=== PATIENT | male | born 1965 | race Two or more races ===

== ENCOUNTER 2017-11-17 12:06 | Inpatient (IN) | payer MEDICAID ==
[~2017-11-17] VITALS: Ht 177.8 cm; Wt 88.0 kg
[~2017-11-17 12:06] MED LIST: FOLI1TAB16 PO; SIME80TA16 PO; THI100T PO
[2017-11-17] MEDS ORDERED: normal saline 1000ML IV soln IVB ONE (13:00)
[2017-11-17] MEDS ORDERED: piperacillin/tazo 3.375gm/50ml 50 ML IV ONE (13:00)
[2017-11-17] MEDS ORDERED: vancomycin/NS 1 GM ADD-VANTAGE 250 ML IV ONE (13:00)
[2017-11-17] MEDS ORDERED: ketorolac trometh. 30mg/ml inj. IV ONE (13:00)
[2017-11-17 13:21] LABS: BASOPHILS % (AUTO) 0.2 % (0-1); EOSINOPHILS % (AUTO) 0 % (0-6); HEMATOCRIT 44.7 % (42.0-52.0); HEMOGLOBIN 14.9 g/dl (14.0-17.9); LYMPHOCYTES # (AUTO) 1.8 X10'3 (1.1-4.8); LYMPHOCYTES % (AUTO) 9.7 % (21-51); MEAN CORPUSCULAR HEMOGLOBIN 29.3 PG (27.0-31.0); MEAN CORPUSCULAR HGB CONC 33.3 % (33.0-36.5); MEAN CORPUSCULAR VOLUME 87.8 FL (78-98); MEAN PLATELET VOLUME 7.6 FL (7.4-10.4); MONOCYTES # (AUTO) 0.9 X10'3 (0-0.9); MONOCYTES % (AUTO) 5.2 % (2-12); NEUTROPHILS # (AUTO) 15.5 X10'3 (1.8-7.7); NEUTROPHILS % (AUTO) 84.9 % (42-75); PLATELET COUNT 341 X10'3 (140-440); RED BLOOD COUNT 5.09 X10'6 (4.70-6.10); RED CELL DISTRIBUTION WIDTH 15.1 % (11.5-14.5); WHITE BLOOD COUNT 18.2 X10'3 (4.5-11.0)
[2017-11-17 13:36] LABS: ALANINE AMINOTRANSFERASE 14 U/L (12-78); ALBUMIN 2.9 G/DL (3.4-5.0); ALBUMIN/GLOBULIN RATIO 0.6 (1.1-1.5); ALKALINE PHOSPHATASE 108 IU/L (46-116); ANION GAP 11 (8-16); ASPARTATE AMINO TRANSFERASE 12 U/L (10-37); BILIRUBIN,TOTAL 0.6 MG/DL (0.1-1.0); BLOOD UREA NITROGEN 12 MG/DL (7-18); BUN/CREATININE RATIO 11.8 (5.4-32.0); CALCIUM 8.6 MG/DL (8.5-10.1); CHLORIDE 101 MMOL/L (99-107); CREATININE 1.02 MG/DL (0.60-1.10); GLUCOSE 115 MG/DL (70-104); MAGNESIUM 1.9 MG/DL (1.5-2.4); SODIUM 139 MMOL/L (135-145); TOTAL CARBON DIOXIDE 27.1 MMOL/L (24-32); eGFR 77 ML/MIN
[2017-11-17] MEDS ORDERED: buprenorphine/naloxone 2-0.5mg sublingual tablet SL STA (13:37)
[2017-11-17 13:38] LABS: POTASSIUM 2.9 MMOL/L (3.5-5.1)
[2017-11-17] MEDS ORDERED: potassium Cl 20 mEq SR tablet PO ONE (13:40)
[2017-11-17] MEDS ORDERED: bisacodyl 10mg suppository rectal RC PRN (14:20)
[2017-11-17] MEDS ORDERED: haloperidol lactate 5mg/ml inj IM PRN (14:20)
[2017-11-17] MEDS ORDERED: acetaminophen 325mg tablet PO PRN (14:20)
[2017-11-17] MEDS ORDERED: thiamine 100mg/ml 2ml inj. IV ONE (14:20)
[2017-11-17] MEDS ORDERED: loperamide 2mg capsule PO PRN (14:20)
[2017-11-17] MEDS ORDERED: dextrose 50%-water 50ml dispensing syringe IV PRN (14:20)
[2017-11-17] MEDS ORDERED: haloperidol 5mg tablet PO PRN (14:20)
[2017-11-17] MEDS ORDERED: HYDROmorphone inj. 0.5 MG/0.5 ML DISP.SYRIN IV PRN ×2 (14:20)
[2017-11-17] MEDS ORDERED: mag hydrox/Alum hydrox/simeth 30ml oral suspension PO PRN ×2 (14:20)
[2017-11-17] MEDS ORDERED: potassium Cl 20 mEq SR tablet PO PRN (14:20)
[2017-11-17] MEDS ORDERED: metoclopramide 5 mg/ml inj IV PRN (14:20)
[2017-11-17] MEDS ORDERED: HYDROcodone/acetaminophen 5mg/325mg tablet PO PRN (14:20)
[2017-11-17] MEDS ORDERED: cyclobenzaprine 10mg tablet PO PRN (14:20)
[2017-11-17] MEDS ORDERED: acetaminophen 650mg rectal suppository RC PRN (14:20)
[2017-11-17] MEDS ORDERED: magnesium hydroxide 30ml (MOM) UD suspension PO PRN (14:20)
[2017-11-17] MEDS ORDERED: LORazepam 1 MG tablet PO PRN (14:20)
[2017-11-17] MEDS ORDERED: HYDROcodone/acetaminophen 10/325mg tab PO PRN (14:20)
[2017-11-17] MEDS ORDERED: LORazepam 2 mg/ml vial IV PRN (14:20)
[2017-11-17] MEDS ORDERED: dicyclomine 10 MG capsule PO PRN (14:20)
[2017-11-17] MEDS ORDERED: ondansetron/PF 4mg/2ml inj IV PRN (14:20)
[2017-11-17] MEDS ORDERED: diphenhydrAMINE 25mg capsule PO PRN (14:20)
[2017-11-17] MEDS ORDERED: morphine 4 MG/ML inj SYRINge IV PRN ×2 (14:20)
[2017-11-17] MEDS ORDERED: diphenhydrAMINE 50 mg/ml inj IV PRN (14:20)
[2017-11-17] MEDS ORDERED: cloNIDine 0.1 mg tablet PO PRN (14:20)
[2017-11-17 14:42] LABS: PARTIAL THROMBOPLASTIN TIME 31 SECONDS (22-32); PROTHROMBIN TIME 10.8 SECONDS (9.0-12.0)
[2017-11-17] MEDS: potassium Cl 20mEq in NS 1,000 ML IV SCH (14:57)
[2017-11-17 15:33] LABS: LIPASE 134 U/L (73-393); PHOSPHORUS 2.8 MG/DL (2.3-4.5)
[2017-11-17 15:49] LABS: CLARITY,URINE Clear (Clear); GLUCOSE, URINE Negative (Neg); KETONES,URINE Negative (Neg); LEUKOCYTE ESTERASE ,URINE Negative (Neg); NITRITES, URINE Negative (Neg); OCCULT BLOOD,URINE Negative (Neg); PROTEIN,URINE 100 mg/dl (Neg)
[2017-11-17 15:51] LABS: COLOR,URINE DARK YELLOW (Yellow); UA COLLECTION TYPE CLN CATCH MIDSTREAM
[2017-11-17 15:55] LABS: RBC,URINE 0-2 /HPF (0-2); WBC,URINE 0-4 /HPF (0-4)
[2017-11-17 15:56] LABS: BACTERIA,URINE NONE SEEN /HPF (Neg); HYALINE CASTS 0-3 /LPF (NEGATIVE); MUCUS STRANDS FEW /LPF (Neg); SQUAMOUS EPITHELIAL CELL,UR FEW /LPF (FEW)
[2017-11-17 16:15] VITALS: BP 126/87
[2017-11-17 19:00] VITALS: BP 148/84
[2017-11-17] MEDS: piperacillin/tazo 4.5gm/100ml 100 ML IV SCH (19:53)
[2017-11-17] MEDS: docusate sod 100mg capsule PO SCH (19:54)
[2017-11-17] MEDS: heparin, porcine 5000 units/ml vial SQ SCH (19:55)
[2017-11-17] MEDS ORDERED: vancomycin/NS 1 GM ADD-VANTAGE 250 ML IV SCH (20:00)
[2017-11-17] MEDS ORDERED: temazepam 15mg capsule PO PRN (21:00)
[2017-11-17] MEDS: gabapentin 100mg capsule PO SCH (21:37)
[2017-11-17] MEDS: potassium Cl 20 mEq SR tablet PO PRN (21:48)
[2017-11-17] MEDS: vancomycin inj 1,250 MG in normal saline 250ml IV soln 250 ML IV SCH (23:08)
[2017-11-18] VITALS: BP 151/89
[2017-11-18] MEDS: potassium Cl 20 mEq SR tablet PO PRN (02:07)
[2017-11-18] MEDS: potassium Cl 20mEq in NS 1,000 ML IV SCH ×3 (03:22→20:17)
[2017-11-18 05:44] LABS: BASOPHILS % (AUTO) 0.4 % (0-1); EOSINOPHILS # (AUTO) 0.2 X10'3 (0-0.9); EOSINOPHILS % (AUTO) 1.8 % (0-6); HEMATOCRIT 34.7 % (42.0-52.0); HEMOGLOBIN 11.8 g/dl (14.0-17.9); LYMPHOCYTES % (AUTO) 22.9 % (21-51); MEAN CORPUSCULAR HEMOGLOBIN 29.8 PG (27.0-31.0); MEAN CORPUSCULAR HGB CONC 33.9 % (33.0-36.5); MEAN PLATELET VOLUME 8.7 FL (7.4-10.4); MONOCYTES # (AUTO) 0.9 X10'3 (0-0.9); MONOCYTES % (AUTO) 6.6 % (2-12); NEUTROPHILS # (AUTO) 8.9 X10'3 (1.8-7.7); NEUTROPHILS % (AUTO) 68.3 % (42-75); PLATELET COUNT 274 X10'3 (140-440); RED BLOOD COUNT 3.94 X10'6 (4.70-6.10); WHITE BLOOD COUNT 13.1 X10'3 (4.5-11.0)
[2017-11-18 06:43] LABS: URINE AMPHETAMINE SCREEN NEGATIVE (Neg); URINE BARBITUATE SCREEN NEGATIVE (Neg); URINE BENZODIAZEPINES SCREEN NEGATIVE (Neg); URINE CANNABINOID SCREEN POSITIVE (Neg); URINE COCAINE SCREEN NEGATIVE (Neg); URINE METHADONE SCREEN NEGATIVE (Neg); URINE OPIATE SCREEN NEGATIVE (Neg); URINE PHENCYCLIDINE SCREEN NEGATIVE (Neg)
[2017-11-18 06:48] LABS: ALANINE AMINOTRANSFERASE 17 U/L (12-78); ALBUMIN 2.3 G/DL (3.4-5.0); ALBUMIN/GLOBULIN RATIO 0.6 (1.1-1.5); ALKALINE PHOSPHATASE 78 IU/L (46-116); AMYLASE 225 U/L (25-115); ANION GAP 8 (8-16); ASPARTATE AMINO TRANSFERASE 13 U/L (10-37); BILIRUBIN,TOTAL 0.5 MG/DL (0.1-1.0); BLOOD UREA NITROGEN 16 MG/DL (7-18); BUN/CREATININE RATIO 15.7 (5.4-32.0); CALCIUM 7.7 MG/DL (8.5-10.1); CHLORIDE 107 MMOL/L (99-107); CREATININE 1.02 MG/DL (0.60-1.10); GLUCOSE 98 MG/DL (70-104); POTASSIUM 4.1 MMOL/L (3.5-5.1); SODIUM 141 MMOL/L (135-145); TOTAL CARBON DIOXIDE 26.1 MMOL/L (24-32); TOTAL PROTEIN 6.4 G/DL (6.4-8.2); eGFR 77 ML/MIN
[2017-11-18] MEDS: docusate sod 100mg capsule PO SCH ×2 (06:53→20:00)
[2017-11-18] MEDS: gabapentin 100mg capsule PO SCH ×3 (06:53→21:47)
[2017-11-18] MEDS: pantoprazole 40mg Tablet.DR PO SCH (06:54)
[2017-11-18] MEDS: heparin, porcine 5000 units/ml vial SQ SCH ×2 (06:58→19:20)
[2017-11-18] MEDS: vancomycin inj 1,250 MG in normal saline 250ml IV soln 250 ML IV SCH ×3 (07:07→23:20)
[2017-11-18 07:11] VITALS: BP 143/81
[2017-11-18] MEDS: K and/or MAG REPLACEMENT MC SCH (08:00)
[2017-11-18] MEDS: piperacillin/tazo 4.5gm/100ml 100 ML IV SCH ×2 (09:31→19:20)
[2017-11-18] MEDS: buprenorphine/naloxone 8mg/2mg SL tablet SL SCH (10:08)
[2017-11-18] MEDS ORDERED: OMEP20CA10 PO (11:14)
[2017-11-18 11:18] VITALS: BP 128/57
[2017-11-18] MEDS ORDERED: NO HOME MEDS (12:28)
[2017-11-18 19:00] VITALS: BP 140/75
[2017-11-18] MEDS: lactobacillus rhamnosus 10,000 MMU CELLS/CAPSULE PO SCH (19:20)
[2017-11-18] MEDS ORDERED: VANCOMYCIN LEVEL IV ONE (22:30)
[2017-11-19] VITALS: BP 140/81
[2017-11-19 05:29] LABS: BASOPHILS % (AUTO) 0.4 % (0-1); EOSINOPHILS # (AUTO) 0.3 X10'3 (0-0.9); EOSINOPHILS % (AUTO) 2.3 % (0-6); HEMATOCRIT 33.9 % (42.0-52.0); HEMOGLOBIN 11.2 g/dl (14.0-17.9); LYMPHOCYTES # (AUTO) 2.9 X10'3 (1.1-4.8); LYMPHOCYTES % (AUTO) 26.2 % (21-51); MEAN CORPUSCULAR HEMOGLOBIN 29.2 PG (27.0-31.0); MEAN CORPUSCULAR HGB CONC 33.1 % (33.0-36.5); MEAN CORPUSCULAR VOLUME 88.3 FL (78-98); MONOCYTES # (AUTO) 0.8 X10'3 (0-0.9); MONOCYTES % (AUTO) 6.8 % (2-12); NEUTROPHILS # (AUTO) 7.2 X10'3 (1.8-7.7); NEUTROPHILS % (AUTO) 64.3 % (42-75); PLATELET COUNT 316 X10'3 (140-440); RED BLOOD COUNT 3.84 X10'6 (4.70-6.10); RED CELL DISTRIBUTION WIDTH 15.2 % (11.5-14.5); WHITE BLOOD COUNT 11.1 X10'3 (4.5-11.0)
[2017-11-19 05:47] LABS: ALANINE AMINOTRANSFERASE 15 U/L (12-78); ALBUMIN 2.3 G/DL (3.4-5.0); ALBUMIN/GLOBULIN RATIO 0.5 (1.1-1.5); ALKALINE PHOSPHATASE 90 IU/L (46-116); AMYLASE 88 U/L (25-115); ANION GAP 4 (8-16); ASPARTATE AMINO TRANSFERASE 9 U/L (10-37); BILIRUBIN,TOTAL 0.4 MG/DL (0.1-1.0); BLOOD UREA NITROGEN 15 MG/DL (7-18); BUN/CREATININE RATIO 15.5 (5.4-32.0); CALCIUM 8.3 MG/DL (8.5-10.1); CHLORIDE 108 MMOL/L (99-107); CREATININE 0.97 MG/DL (0.60-1.10); GLUCOSE 88 MG/DL (70-104); POTASSIUM 3.9 MMOL/L (3.5-5.1); SODIUM 141 MMOL/L (135-145); TOTAL CARBON DIOXIDE 28.7 MMOL/L (24-32); TOTAL PROTEIN 6.5 G/DL (6.4-8.2); eGFR 81 ML/MIN
[2017-11-19] MEDS: potassium Cl 20mEq in NS 1,000 ML IV SCH ×2 (06:17→10:40)
[2017-11-19 06:53] VITALS: BP 148/84
[2017-11-19] MEDS: pantoprazole 40mg Tablet.DR PO SCH (07:11)
[2017-11-19] MEDS: heparin, porcine 5000 units/ml vial SQ SCH ×2 (07:11→19:58)
[2017-11-19] MEDS: lactobacillus rhamnosus 10,000 MMU CELLS/CAPSULE PO SCH ×2 (07:11→19:58)
[2017-11-19] MEDS: gabapentin 100mg capsule PO SCH ×3 (07:11→21:01)
[2017-11-19] MEDS: vancomycin inj 1,250 MG in normal saline 250ml IV soln 250 ML IV SCH ×3 (07:11→22:47)
[2017-11-19] MEDS: docusate sod 100mg capsule PO SCH ×2 (07:11→19:58)
[2017-11-19] MEDS: K and/or MAG REPLACEMENT MC SCH (08:00)
[2017-11-19] MEDS: buprenorphine/naloxone 8mg/2mg SL tablet SL SCH (09:00)
[2017-11-19] MEDS: piperacillin/tazo 4.5gm/100ml 100 ML IV SCH ×2 (09:00→21:01)
[2017-11-19 11:27] VITALS: BP 150/86
[2017-11-19 19:30] VITALS: BP 156/78
[2017-11-20 00:20] VITALS: BP 152/85
[2017-11-20] MEDS: potassium Cl 20mEq in NS 1,000 ML IV SCH ×3 (02:05→14:15)
[2017-11-20 05:24] LABS: BASOPHILS # (AUTO) 0.1 X10'3 (0-0.2); BASOPHILS % (AUTO) 0.7 % (0-1); EOSINOPHILS # (AUTO) 0.3 X10'3 (0-0.9); EOSINOPHILS % (AUTO) 2.7 % (0-6); HEMATOCRIT 35.4 % (42.0-52.0); HEMOGLOBIN 11.8 g/dl (14.0-17.9); LYMPHOCYTES # (AUTO) 2.8 X10'3 (1.1-4.8); LYMPHOCYTES % (AUTO) 27.8 % (21-51); MEAN CORPUSCULAR HEMOGLOBIN 29.7 PG (27.0-31.0); MEAN CORPUSCULAR HGB CONC 33.4 % (33.0-36.5); MEAN CORPUSCULAR VOLUME 88.9 FL (78-98); MONOCYTES # (AUTO) 0.8 X10'3 (0-0.9); MONOCYTES % (AUTO) 7.9 % (2-12); NEUTROPHILS % (AUTO) 60.9 % (42-75); PLATELET COUNT 315 X10'3 (140-440); RED BLOOD COUNT 3.98 X10'6 (4.70-6.10); RED CELL DISTRIBUTION WIDTH 15.2 % (11.5-14.5); WHITE BLOOD COUNT 9.9 X10'3 (4.5-11.0)
[2017-11-20 05:45] LABS: ALANINE AMINOTRANSFERASE 13 U/L (12-78); ALBUMIN 2.3 G/DL (3.4-5.0); ALBUMIN/GLOBULIN RATIO 0.5 (1.1-1.5); ALKALINE PHOSPHATASE 84 IU/L (46-116); AMYLASE 60 U/L (25-115); ANION GAP 8 (8-16); ASPARTATE AMINO TRANSFERASE 12 U/L (10-37); BILIRUBIN,TOTAL 0.4 MG/DL (0.1-1.0); BLOOD UREA NITROGEN 13 MG/DL (7-18); BUN/CREATININE RATIO 12.6 (5.4-32.0); CALCIUM 8.1 MG/DL (8.5-10.1); CHLORIDE 105 MMOL/L (99-107); CREATININE 1.03 MG/DL (0.60-1.10); GLUCOSE 88 MG/DL (70-104); POTASSIUM 3.9 MMOL/L (3.5-5.1); SODIUM 140 MMOL/L (135-145); TOTAL CARBON DIOXIDE 26.7 MMOL/L (24-32); TOTAL PROTEIN 6.7 G/DL (6.4-8.2); eGFR 76 ML/MIN
[2017-11-20] MEDS: pantoprazole 40mg Tablet.DR PO SCH (07:02)
[2017-11-20] MEDS: vancomycin inj 1,250 MG in normal saline 250ml IV soln 250 ML IV SCH ×3 (07:02→22:50)
[2017-11-20] MEDS: gabapentin 100mg capsule PO SCH ×3 (07:02→21:45)
[2017-11-20] MEDS: lactobacillus rhamnosus 10,000 MMU CELLS/CAPSULE PO SCH ×2 (07:02→19:50)
[2017-11-20] MEDS: docusate sod 100mg capsule PO SCH ×2 (07:02→19:51)
[2017-11-20 07:13] VITALS: BP 159/83
[2017-11-20] MEDS: K and/or MAG REPLACEMENT MC SCH (08:00)
[2017-11-20] MEDS: piperacillin/tazo 4.5gm/100ml 100 ML IV SCH ×2 (08:54→19:51)
[2017-11-20] MEDS: heparin, porcine 5000 units/ml vial SQ SCH ×2 (08:54→19:51)
[2017-11-20] MEDS: buprenorphine/naloxone 8mg/2mg SL tablet SL SCH (08:54)
[2017-11-20 11:14] VITALS: BP 153/86
[2017-11-20] MEDS: nicotine 14mg patch - 24hr TD SCH (17:04)
[2017-11-20] MEDS ORDERED: HYDROmorphone 1 mg/ml syringe ONE (19:45)
[2017-11-20 20:00] VITALS: BP 156/89
[2017-11-21] VITALS: BP 152/75
[2017-11-21] MEDS: potassium Cl 20mEq in NS 1,000 ML IV SCH (05:24)
[2017-11-21 05:25] LABS: BASOPHILS % (AUTO) 0.4 % (0-1); EOSINOPHILS # (AUTO) 0.3 X10'3 (0-0.9); EOSINOPHILS % (AUTO) 2.9 % (0-6); HEMATOCRIT 36.1 % (42.0-52.0); HEMOGLOBIN 12.1 g/dl (14.0-17.9); LYMPHOCYTES # (AUTO) 2.7 X10'3 (1.1-4.8); LYMPHOCYTES % (AUTO) 25.5 % (21-51); MEAN CORPUSCULAR HEMOGLOBIN 29.5 PG (27.0-31.0); MEAN CORPUSCULAR HGB CONC 33.6 % (33.0-36.5); MEAN CORPUSCULAR VOLUME 87.9 FL (78-98); MONOCYTES # (AUTO) 0.8 X10'3 (0-0.9); MONOCYTES % (AUTO) 7.7 % (2-12); NEUTROPHILS # (AUTO) 6.7 X10'3 (1.8-7.7); NEUTROPHILS % (AUTO) 63.5 % (42-75); PLATELET COUNT 374 X10'3 (140-440); RED BLOOD COUNT 4.11 X10'6 (4.70-6.10); WHITE BLOOD COUNT 10.6 X10'3 (4.5-11.0)
[2017-11-21] MEDS: HYDROmorphone 1 mg/ml syringe ONE ×2 (05:25→05:33)
[2017-11-21 05:44] LABS: ALANINE AMINOTRANSFERASE 17 U/L (12-78); ALBUMIN 2.4 G/DL (3.4-5.0); ALBUMIN/GLOBULIN RATIO 0.5 (1.1-1.5); ALKALINE PHOSPHATASE 90 IU/L (46-116); ANION GAP 6 (8-16); ASPARTATE AMINO TRANSFERASE 11 U/L (10-37); BILIRUBIN,TOTAL 0.5 MG/DL (0.1-1.0); BLOOD UREA NITROGEN 12 MG/DL (7-18); BUN/CREATININE RATIO 10.8 (5.4-32.0); CALCIUM 8.7 MG/DL (8.5-10.1); CHLORIDE 108 MMOL/L (99-107); CREATININE 1.11 MG/DL (0.60-1.10); GLUCOSE 92 MG/DL (70-104); POTASSIUM 4.1 MMOL/L (3.5-5.1); SODIUM 143 MMOL/L (135-145); TOTAL CARBON DIOXIDE 29.5 MMOL/L (24-32); TOTAL PROTEIN 7.2 G/DL (6.4-8.2); eGFR 70 ML/MIN
[2017-11-21] MEDS: K and/or MAG REPLACEMENT MC SCH (06:45)
[2017-11-21 07:00] VITALS: BP 125/89
[2017-11-21] MEDS: docusate sod 100mg capsule PO SCH (07:31)
[2017-11-21] MEDS: gabapentin 100mg capsule PO SCH ×2 (07:31→12:44)
[2017-11-21] MEDS: pantoprazole 40mg Tablet.DR PO SCH (07:31)
[2017-11-21] MEDS: vancomycin inj 1,250 MG in normal saline 250ml IV soln 250 ML IV SCH (07:31)
[2017-11-21] MEDS: lactobacillus rhamnosus 10,000 MMU CELLS/CAPSULE PO SCH (07:31)
[2017-11-21] MEDS: heparin, porcine 5000 units/ml vial SQ SCH (07:32)
[2017-11-21] MEDS: nicotine 14mg patch - 24hr TD SCH (07:32)
[2017-11-21] MEDS ORDERED: nicotine 14mg patch - 24hr TD SCH (08:00)
[2017-11-21] MEDS ORDERED: buprenorphine/naloxone 2-0.5mg sublingual tablet SL SCH (08:51)
[2017-11-21] MEDS: piperacillin/tazo 4.5gm/100ml 100 ML IV SCH (09:11)
[2017-11-21 12:00] VITALS: BP 153/87
[2017-11-21] MEDS ORDERED: METR500T PO (12:18)
[2017-11-21] MEDS ORDERED: CIPR-259 PO (12:18)
[2017-11-21] MEDS ORDERED: GABA100C PO (12:18)
[2017-11-21] MEDS ORDERED: HYDR-3972 PO (12:18)
[2017-11-21] MEDS ORDERED: NICO-631 TD (12:18)
== END 2017-11-21 17:44 | disposition home health service (06) | DRG 344 ==
LOC: ER 12:07 → ED HOLD 14:17 → SUR 3N 16:13
PROVIDERS: ADMIT Family Medicine; ATTEND Internal Medicine
DX: M00.9 Pyogenic arthritis, unspecified (principal); L03.115 Cellulitis of right lower limb; B19.20 Unspecified viral hepatitis C without hepatic coma; F11.10 Opioid abuse, uncomplicated; E87.6 Hypokalemia; F10.10 Alcohol abuse, uncomplicated; M70.41 Prepatellar bursitis, right knee; F12.90 Cannabis use, unspecified, uncomplicated; F17.210 Nicotine dependence, cigarettes, uncomplicated; G89.29 Other chronic pain; Z91.19 Patient's noncompliance with other medical treatment and regimen; Z59.0 Homelessness; Z79.899 Other long term (current) drug therapy; Y93.89 Activity, other specified
CPT/HCPCS: 36415; 73560; 73590; 80053; 80202; 80305; 81001; 82150; 82948; 83605; 83690; 83735; 83880; 84100; 84145; 85025; 85610; 85730; 87040; 87070; 96365; 96368; 96375; 97110; 97116; 97162; 97530; 99285; A4649; A6196; A6212; A6213; A6257; A6449; J1170; J1644; J1885; J2543; J3370; J3411; J7030

== ENCOUNTER 2018-06-25 17:20 | Inpatient (IN) | payer MEDICAID ==
[~2018-06-25] VITALS: Ht 177.8 cm; Wt 84.8 kg
[~2018-06-25 17:20] MED LIST changes: -FOLI1TAB16 PO; +GABA100C PO; +HYDR-3972 PO; +NICO-631 TD; +NO HOME MEDS; -SIME80TA16 PO; -THI100T PO; +etomidate 2mg/ml inj. ONE; +rocuronium 10mg/ml inj IV ONE
[2018-06-25 19:10] LABS: BASOPHILS % (AUTO) 0 % (0-1); EOSINOPHILS % (AUTO) 0 % (0-6); HEMATOCRIT 48.8 % (42.0-52.0); HEMOGLOBIN 15.5 g/dl (14.0-17.9); INR 1.1 INR; LYMPHOCYTES # (AUTO) 0.8 X10'3 (1.1-4.8); LYMPHOCYTES % (AUTO) 7.5 % (21-51); MEAN CORPUSCULAR HEMOGLOBIN 26.9 PG (27.0-31.0); MEAN CORPUSCULAR HGB CONC 31.8 % (33.0-36.5); MEAN CORPUSCULAR VOLUME 84.7 FL (78-98); MEAN PLATELET VOLUME 7.9 FL (7.4-10.4); MONOCYTES # (AUTO) 0.3 X10'3 (0-0.9); MONOCYTES % (AUTO) 2.3 % (2-12); NEUTROPHILS % (AUTO) 90.2 % (42-75); PLATELET COUNT 332 X10'3 (140-440); PROTHROMBIN TIME 10.9 SECONDS (9.0-12.0); RED BLOOD COUNT 5.75 X10'6 (4.70-6.10); RED CELL DISTRIBUTION WIDTH 15.7 % (11.5-14.5); WHITE BLOOD COUNT 11.1 X10'3 (4.5-11.0)
[2018-06-25 19:14] LABS: ALANINE AMINOTRANSFERASE 32 U/L (12-78); ALBUMIN 3.7 G/DL (3.4-5.0); ALBUMIN/GLOBULIN RATIO 0.7 (1.1-1.5); ALKALINE PHOSPHATASE 227 IU/L (46-116); ANION GAP 13 (8-16); ASPARTATE AMINO TRANSFERASE 20 U/L (10-37); BLOOD UREA NITROGEN 21 MG/DL (7-18); BUN/CREATININE RATIO 19.6 (5.4-32.0); CALCIUM 9.7 MG/DL (8.5-10.1); CHLORIDE 96 MMOL/L (99-107); CREATININE 1.07 MG/DL (0.60-1.10); GLUCOSE 143 MG/DL (70-104); POTASSIUM 3.9 MMOL/L (3.5-5.1); SODIUM 137 MMOL/L (135-145); TOTAL CARBON DIOXIDE 28.1 MMOL/L (24-32); TOTAL PROTEIN 9.1 G/DL (6.4-8.2); eGFR 72 ML/MIN
[2018-06-25 19:49] LABS: LIPASE 83 U/L (73-393)
--- NOTE | 2018-06-25 20:28 | NUR ---
DR WALKER AND BABAR MCDANIELS AT BEDSIDE WITH PT
[2018-06-25] MEDS ORDERED: HYDROmorphone 2mg/ml vial IV PRN (20:30)
[2018-06-25] MEDS ORDERED: iohexol 350MG/ML 100ml bottle IV ONE (20:34)
[2018-06-25] MEDS: HYDROmorphone 1 mg/ml syringe IV PRN ×3 (20:45→22:51)
[2018-06-25] MEDS ORDERED: labetalol 20mg/4ml (5mg/ml) syringe IV ONE (21:10)
--- NOTE | 2018-06-25 21:28 | NUR ---
BABAR MCDANIELS AND DR. WALKER AT BEDSIDE TO ATTEMPT REDUCTION OF ABD HERNIA, UNSUCCESSFUL AND PT WITH MOR PAIN TO ABD NOWL. PRN DILAUDID 0.5 IV GIVEN AND LABETOLOL 20 MG IV GIVEN FOR CONTINUED HTN, BP 162/104. PT IS SOMOULANT BUT AWAKENS TO LOUD VOICE AND ANSWERS APPROPRIATELY.
[2018-06-25] MEDS ORDERED: esmolol/sodium cl bag 250 ML IV SCH (22:10)
--- NOTE | 2018-06-25 22:28 | NUR ---
PER DR WALKER TITRATE PER PROTOCOL ESMOLOL TO GET SYSTOLIC BELOW 120.
[2018-06-25] MEDS ORDERED: labetalol inj. 200 MG in normal saline 250ml IV soln 210 ML IV SCH (22:50)
[2018-06-25] MEDS ORDERED: LORazepam 2 mg/ml vial ONE (22:55)
[2018-06-25] MEDS ORDERED: LORazepam 2 mg/ml vial IV ONE (22:55)
--- NOTE | 2018-06-25 22:57 | NUR ---
Pt moved to room 5, multiple RNs and MD in room. RT paged for intubation, preparing medications. Pt very uncomfortable.
--- NOTE | 2018-06-25 23:00 | NUR ---
rocuronium 70 mg IV RAC
--- NOTE | 2018-06-25 23:01 | NUR ---
etomidate 20 mg IV RAC
[2018-06-25] MEDS ORDERED: rocuronium 10mg/ml inj IV ONE ×2 (23:05→23:30)
[2018-06-25] MEDS ORDERED: etomidate 2mg/ml inj. IV ONE (23:05)
[2018-06-25] MEDS ORDERED: hydrALAZINE 20mg/ml inj. IV STA (23:06)
[2018-06-25] MEDS ORDERED: ringers solution, lacted 1,000 ML IV SCH (23:07)
[2018-06-25] MEDS ORDERED: hydrALAZINE 20mg/ml inj. IV PRN (23:10)
[2018-06-25] MEDS ORDERED: morphine 4 MG/ML inj SYRINge IV PRN ×2 (23:10)
[2018-06-25] MEDS ORDERED: fentaNYL/PF 50MCG/1 ML 2ML syringe IV PRN ×2 (23:10)
[2018-06-25] MEDS ORDERED: labetalol 20mg/4ml (5mg/ml) syringe IV PRN (23:10)
[2018-06-25] MEDS ORDERED: ondansetron/PF 4mg/2ml inj IV PRN (23:10)
[2018-06-25] MEDS ORDERED: piperacillin/tazo 4.5gm/100ml 100 ML IV ONE (23:10)
--- NOTE | 2018-06-25 23:10 | NUR ---
is prepared, and is going to do an central line
[2018-06-25] MEDS ORDERED: nitroGLYCERIN-Tridil 50MG/D5W 250 ML IV ONE (23:20)
[2018-06-25] MEDS: midazolam 100mg in NS 100ml 100 ML IV PRN (23:21)
[2018-06-25] MEDS: FENTANYL-0.9 % NACL/PF 100 ML IV PRN (23:22)
--- NOTE | 2018-06-25 23:26 | NUR ---
ET reposotioned to 26cm at teeth. Found at 27cm at teeth upons CXR.
[2018-06-25] MEDS ORDERED: MIDAZolam 5mg/5ml vial ONE (23:29)
[2018-06-25] MEDS ORDERED: fentaNYL/PF 50MCG/1 ML 2ML syringe ONE (23:29)
[2018-06-25 23:35] LABS: ABG BASE EXCESS 3.7 mmol/L (-2.0-3.0); ABG HCO3 27.8 mmol/L (22.0-26.0); ABG OXYGEN SATURATION 98.4 % (95-98); ABG PCO2 (T) 40.7 mmHg (35.0-48.0); ABG PH (T) 7.454 (7.350-7.450); ABG PO2 (T) 131.2 mmHg (83-108); ALLEN'S TEST Positive; FCOHb 1.4 % (0.5-1.5); FMetHb 0.2 % (0.3-1.12); FO2Hb 96.8 % (94-100); MINUTE VOLUME 9 L/min; PATIENT TEMPERATURE 37.2; PEEP 5 cm H2O; RESPIRATORY RATE 16 b/min; RESPIRATORY RATE (OBSERVED) 23 b/min; TIDAL VOLUME 550 mL
[2018-06-25] MEDS ORDERED: clindamycin phosphate 150mg/ml inj. ONE (23:42)
[2018-06-25] MEDS ORDERED: SODIUM CHLORIDE ONE (23:47)
[2018-06-25] MEDS ORDERED: gentamicin 40 MG/1 ML inj ONE (23:47)
[2018-06-25 23:54] LABS: INR 1.2 INR; PROTHROMBIN TIME 11.6 SECONDS (9.0-12.0)
[2018-06-25 23:58] LABS: CLARITY,URINE CLEAR (Clear); COLOR,URINE YELLOW (Yellow); GLUCOSE, URINE NEGATIVE (Neg); KETONES,URINE NEGATIVE (Neg); LEUKOCYTE ESTERASE ,URINE NEGATIVE (Neg); NITRITES, URINE NEGATIVE (Neg); OCCULT BLOOD,URINE TRACE-LYSED (Neg); PROTEIN,URINE >=300 mg/dl (Neg); UROBILINOGEN,URINE 0.2 E.U/dL (0.2-1.0)
[2018-06-26] VITALS (28 sets, daily range): BP systolic 108–169; BP diastolic 73–99
[2018-06-26] MEDS ORDERED: sevoflurane 250ml liquid IH ONE
[2018-06-26] MEDS ORDERED: nitroGLYCERIN in D5W 50mg/250ml (Tridil) infusion IV ONE
[2018-06-26] MEDS ORDERED: labetalol 20mg/4ml (5mg/ml) syringe IV ONE
[2018-06-26 00:07] LABS: UA COLLECTION TYPE FOLEY CATH
[2018-06-26 00:12] LABS: AMORPHOUS URATES 1+; BACTERIA,URINE FEW /HPF (Neg); MUCUS STRANDS MODERATE /LPF (Neg); RBC,URINE 0-2 /HPF (0-2); SQUAMOUS EPITHELIAL CELL,UR FEW /LPF (FEW); WBC,URINE 0-4 /HPF (0-4)
[2018-06-26] MEDS ORDERED: phenylephrine 10mg/ml inj. ONE ×2 (00:22)
[2018-06-26] MEDS ORDERED: labetalol 5mg/ml 20ml inj. IV ONE (00:38)
[2018-06-26] MEDS ORDERED: ringers solution, lacted 1,000 ML IV SCH (00:59)
[2018-06-26] MEDS ORDERED: ondansetron/PF 4mg/2ml inj IV PRN ×2 (01:00→02:35)
[2018-06-26] MEDS ORDERED: rocuronium 10mg/ml inj IV ONE ×3 (01:27)
[2018-06-26] MEDS ORDERED: morphine 4 MG/ML inj SYRINge IV PRN ×2 (02:35)
[2018-06-26] MEDS ORDERED: acetaminophen 325mg tablet PO PRN ×2 (02:35)
[2018-06-26] MEDS ORDERED: potassium Cl 40MEQ/250ML bag 250 ML IV SCH (02:35)
[2018-06-26] MEDS: K, MAG and/or Phos replacement - Verify level? MC SCH ×2 (02:35→08:00)
[2018-06-26] MEDS ORDERED: potassium Cl 20 mEq SR tablet PO PRN (02:35)
[2018-06-26] MEDS ORDERED: acetaminophen 650mg rectal suppository RC PRN (02:35)
[2018-06-26] MEDS ORDERED: midazolam 100mg in NS 100ml 100 ML IV PRN (02:45)
[2018-06-26] MEDS ORDERED: FENTANYL-0.9 % NACL/PF 100 ML IV PRN (02:45)
[2018-06-26] MEDS ORDERED: ipratropium/albuterol 3ml nebule NEB PRN ×2 (02:45→16:00)
[2018-06-26] MEDS ORDERED: esmolol/sodium cl bag 250 ML IV ONE ×3 (02:53→14:25)
[2018-06-26] MEDS ORDERED: esmolol/sodium cl bag 250 ML IV SCH (02:55)
[2018-06-26 03:01] LABS: ABG BASE EXCESS 2.9 mmol/L (-2.0-3.0); ABG HCO3 27.3 mmol/L (22.0-26.0); ABG OXYGEN SATURATION 97.3 % (95-98); ABG PCO2 (T) 40.2 mmHg (35.0-48.0); ABG PH (T) 7.447 (7.350-7.450); ABG PO2 (T) 96.3 mmHg (83-108); FCOHb 1.2 % (0.5-1.5); FMetHb 0.2 % (0.3-1.12); FO2Hb 95.9 % (94-100); MINUTE VOLUME 9 L/min; PATIENT TEMPERATURE 36.4; PEEP 5 cm H2O; RESPIRATORY RATE 16 b/min; RESPIRATORY RATE (OBSERVED) 16 b/min; TIDAL VOLUME 550 mL; TOTAL HEMOGLOBIN 14.2 G/dl (14.0-18.0)
[2018-06-26] MEDS: midazolam 100mg in NS 100ml 100 ML IV PRN (05:16)
[2018-06-26] MEDS: FENTANYL-0.9 % NACL/PF 100 ML IV PRN ×2 (05:17→12:11)
[2018-06-26] MEDS: normal saline 1000ml 1,000 ML IV SCH ×3 (05:18→23:02)
--- NOTE | 2018-06-26 05:55 | NUR ---
0230..Patient in room CICU 2005. I have received report from OR crew and had the opportunity to ask questions and assume patient care.
--- NOTE | 2018-06-26 05:56 | NUR ---
0300..Assessment as noted, pt intubated, et tube secure, midline abd incision clean dry and intact, iv fluids all infusing via pumps.
--- NOTE | 2018-06-26 05:58 | NUR ---
0500..No changes noted.
--- NOTE | 2018-06-26 06:14 | NUR ---
0610..Problems reprioritized. Patient report given, questions answered & plan of care reviewed with Trini STARKS.
--- NOTE | 2018-06-26 06:30 | NUR ---
Patient in room CICU 2006. I have received report from Ml Ghosh RN and had the opportunity to ask questions and assume patient care along with Bisi Torres RN.
[2018-06-26 07:20] LABS: BASOPHILS % (AUTO) 0.3 % (0-1); EOSINOPHILS % (AUTO) 0 % (0-6); HEMATOCRIT 41.3 % (42.0-52.0); HEMOGLOBIN 13.5 g/dl (14.0-17.9); LYMPHOCYTES # (AUTO) 1.1 X10'3 (1.1-4.8); LYMPHOCYTES % (AUTO) 7.3 % (21-51); MEAN CORPUSCULAR HEMOGLOBIN 27.5 PG (27.0-31.0); MEAN CORPUSCULAR HGB CONC 32.7 % (33.0-36.5); MEAN CORPUSCULAR VOLUME 84.1 FL (78-98); MEAN PLATELET VOLUME 7.8 FL (7.4-10.4); MONOCYTES % (AUTO) 6.8 % (2-12); NEUTROPHILS # (AUTO) 13.1 X10'3 (1.8-7.7); NEUTROPHILS % (AUTO) 85.6 % (42-75); PLATELET COUNT 354 X10'3 (140-440); RED BLOOD COUNT 4.91 X10'6 (4.70-6.10); WHITE BLOOD COUNT 15.2 X10'3 (4.5-11.0)
[2018-06-26] MEDS: pantoprazole 40 MG vial IV SCH (09:18)
[2018-06-26] MEDS: piperacillin/tazo 3.375gm/50ml 50 ML IV SCH ×3 (10:01→20:10)
[2018-06-26 10:36] LABS: ALBUMIN 2.5 G/DL (3.4-5.0); ANION GAP 10 (8-16); BLOOD UREA NITROGEN 19 MG/DL (7-18); BUN/CREATININE RATIO 19.6 (5.4-32.0); CHLORIDE 103 MMOL/L (99-107); CREATININE 0.97 MG/DL (0.60-1.10); GLUCOSE 133 MG/DL (70-104); MAGNESIUM 1.5 MG/DL (1.5-2.4); POTASSIUM 3.7 MMOL/L (3.5-5.1); SODIUM 139 MMOL/L (135-145); TOTAL CARBON DIOXIDE 26.5 MMOL/L (24-32); eGFR 81 ML/MIN
[2018-06-26 10:38] LABS: CALCIUM 7.5 MG/DL (8.5-10.1)
--- NOTE | 2018-06-26 11:00 | NUR ---
tahir dc without problems, dc due to positional and inaccurate
--- NOTE | 2018-06-26 11:00 | NUR ---
rounds, Dr Cullen updated on patients status, labs, Vital signs, elevated BP and at max dose of brevibloc gtt, order to increase to max 250 mcg/kg/min. Also updated on unequal pupil sizes, no orders received re same. Plan is to wean and extubate
--- NOTE | 2018-06-26 12:24 | NUR ---
Patient is intubated s/p exploratory laparotomy, lysis of adhesions, appendectomy, and small bowel resection. Small bowel resection was d/t incarcerated hernia per H&P. Per rounds today patient possible extubation today. Recommend to advance diet as medically indicated when extubated to regular. Will continue to follow. Addendum: 06/26/18 at [address] Amended: Links added.
--- NOTE | 2018-06-26 12:30 | NUR ---
attempted CPAP, resp rate increased to 33 and Sys bp increased to 147. returned back to AC vent control. Will attempt again later as pt wakens
--- NOTE | 2018-06-26 14:00 | NUR ---
CPAP attempted, resp rate 29 with volumes of 350-450. pt is more awake and responding to commands, but drift easily back to sleep, fentanyl reduced.
[2018-06-26] MEDS ORDERED: naloxone 0.4 mg/ml inj IV PRN (16:00)
[2018-06-26] MEDS ORDERED: CADD PCA waste documentation MC PRN (16:00)
[2018-06-26] MEDS ORDERED: racepinephrine 11.25mg/0.5ml nebule NEB PRN (16:00)
[2018-06-26] MEDS: esmolol/sodium cl bag 250 ML IV SCH ×3 (16:48→22:13)
[2018-06-26] MEDS: HYDROmorphone/NS 1 mg/ml CADD 50 ML IV SCH ×4 (17:00→23:00)
--- NOTE | 2018-06-26 18:09 | NUR ---
Orientee documentation: I have reviewed and agree with all interventions, assessments performed and documented by Bisi Torres RN.
--- NOTE | 2018-06-26 18:30 | NUR ---
assumed care , extubated , reorientated to place and time , confused with time and place .BP still see flowsheet
[2018-06-26] MEDS: ipratropium/albuterol 3ml nebule NEB SCH (20:57)
[2018-06-26] MEDS ORDERED: metoprolol tartrate 1mg/ml inj IV PRN (21:15)
[2018-06-26] MEDS: metoprolol tartrate 1mg/ml inj IV SCH ×3 (21:45→23:01)
[2018-06-26] MEDS ORDERED: hydrALAZINE 20mg/ml inj. IV PRN (23:45)
[2018-06-27] VITALS (25 sets, daily range): BP systolic 94–168; BP diastolic 42–94
--- NOTE | 2018-06-27 00:28 | NUR ---
SPORTS ATHLETIC TRAINER AWARE OF PATIENT BP , GIVEN 3X OF LOPRESSOR AND HYDRALAZINE , BP STILL 160 SBP AND UP 170 WHEN HE IS AWAKE , INCREASE ESMOLOL AGAIN , STILL COMPLAINING WANT TO URINATE AND KEEP REPEATING TO HIM HE HAS A BRUCE
[2018-06-27] MEDS: esmolol/sodium cl bag 250 ML IV SCH ×5 (00:43→06:48)
[2018-06-27] MEDS: HYDROmorphone/NS 1 mg/ml CADD 50 ML IV SCH ×12 (01:00→23:00)
[2018-06-27] MEDS: piperacillin/tazo 3.375gm/50ml 50 ML IV SCH ×4 (02:15→19:32)
[2018-06-27] MEDS: ipratropium/albuterol 3ml nebule NEB SCH ×4 (02:37→20:40)
[2018-06-27] MEDS ORDERED: esmolol/sodium cl bag 250 ML IV SCH (02:55)
--- NOTE | 2018-06-27 03:34 | NUR ---
still wiggles in bed , found all wires and IV tubings wrap around all over him , reoriented but only good for one hour and tried to turn back and forth in his bed again , BP up and down from 160 to 130 SBP, but on 120-130 when he is calm and sleep.
[2018-06-27 03:44] LABS: ALANINE AMINOTRANSFERASE 20 U/L (12-78); ALBUMIN 2.6 G/DL (3.4-5.0); ALBUMIN/GLOBULIN RATIO 0.6 (1.1-1.5); ALKALINE PHOSPHATASE 119 IU/L (46-116); ANION GAP 11 (8-16); ASPARTATE AMINO TRANSFERASE 17 U/L (10-37); BILIRUBIN,TOTAL 1.5 MG/DL (0.1-1.0); BLOOD UREA NITROGEN 16 MG/DL (7-18); CALCIUM 7.7 MG/DL (8.5-10.1); CHLORIDE 103 MMOL/L (99-107); GLUCOSE 100 MG/DL (70-104); MAGNESIUM 1.6 MG/DL (1.5-2.4); PHOSPHORUS 2.4 MG/DL (2.3-4.5); POTASSIUM 3.5 MMOL/L (3.5-5.1); SODIUM 139 MMOL/L (135-145); TOTAL CARBON DIOXIDE 24.6 MMOL/L (24-32); TOTAL PROTEIN 6.7 G/DL (6.4-8.2); eGFR 78 ML/MIN
[2018-06-27 03:50] LABS: BASOPHILS % (AUTO) 0.2 % (0-1); EOSINOPHILS % (AUTO) 0 % (0-6); HEMATOCRIT 37.9 % (42.0-52.0); HEMOGLOBIN 12.1 g/dl (14.0-17.9); LYMPHOCYTES # (AUTO) 1.5 X10'3 (1.1-4.8); LYMPHOCYTES % (AUTO) 11.7 % (21-51); MEAN CORPUSCULAR HEMOGLOBIN 26.8 PG (27.0-31.0); MEAN CORPUSCULAR VOLUME 83.8 FL (78-98); MEAN PLATELET VOLUME 7.9 FL (7.4-10.4); MONOCYTES # (AUTO) 0.9 X10'3 (0-0.9); MONOCYTES % (AUTO) 6.7 % (2-12); NEUTROPHILS # (AUTO) 10.6 X10'3 (1.8-7.7); NEUTROPHILS % (AUTO) 81.4 % (42-75); PLATELET COUNT 333 X10'3 (140-440); RED BLOOD COUNT 4.53 X10'6 (4.70-6.10); RED CELL DISTRIBUTION WIDTH 17.1 % (11.5-14.5); WHITE BLOOD COUNT 13.1 X10'3 (4.5-11.0)
--- NOTE | 2018-06-27 06:00 | NUR ---
Patient in room CICU 2006. I have received report from Davina Martinez RN and had the opportunity to ask questions and assume patient care.
[2018-06-27] MEDS: pantoprazole 40 MG vial IV SCH (07:48)
[2018-06-27] MEDS ORDERED: mineral oil/petrolatum ophthal oint EACHEYE SCH (08:00)
[2018-06-27] MEDS: K, MAG and/or Phos replacement - Verify level? MC SCH (08:00)
--- NOTE | 2018-06-27 08:30 | NUR ---
lomas catheter dc without problems
[2018-06-27] MEDS: carVEDilol 12.5mg tablet PO SCH ×2 (08:47→19:32)
[2018-06-27] MEDS ORDERED: labetalol inj. 200 MG in normal saline 250ml IV soln 210 ML IV SCH (10:35)
[2018-06-27] MEDS ORDERED: niCARDipine/sod cl 20mg/200ml 200 ML IV SCH (11:40)
[2018-06-27] MEDS ORDERED: niCARDipine-NS 40mg/200ml IVPB 200 ML IV SCH (12:05)
[2018-06-27] MEDS: normal saline 1000ml 1,000 ML IV SCH ×2 (12:14→18:32)
[2018-06-27] MEDS: nicotine 21mg patch - 24 hr TD SCH (12:29)
[2018-06-27] MEDS: niCARDipine-NS 40mg/200ml IVPB 200 ML IV SCH ×2 (12:30→16:28)
--- NOTE | 2018-06-27 12:30 | NUR ---
Nicardipine ggt started, as per new orders
--- NOTE | 2018-06-27 17:23 | NUR ---
up to chair, tolerating activity well, tolerates chair position better than bed for comfort, using IS well, abd drsg intact with old sero sang drainage outlined with no increase, not passing flatus at present, currently on cardene gtt for bp control, tolerating well. safety maintained, no voiced concerns at present
[2018-06-28] VITALS (25 sets, daily range): BP systolic 104–163; BP diastolic 51–76
--- NOTE | 2018-06-28 00:32 | NUR ---
pt wanted to get up to the chair. pt stood up before instructed and in the process of standing up pt pulled out his ng tube. notified. gave the okay to replace ng tube
--- NOTE | 2018-06-28 00:50 | NUR ---
ng tube replaced in right nare. tube placement confirmed via auscultation and positive gastric contents. pt tolerated the procedure well
--- NOTE | 2018-06-28 00:52 | NUR ---
pt reeducated on the importance of following instructions while moving in order to avoid pulling out lines. pt verbalized understanding of education will continue to monitor.
[2018-06-28] MEDS: HYDROmorphone/NS 1 mg/ml CADD 50 ML IV SCH ×12 (01:00→23:00)
[2018-06-28] MEDS: piperacillin/tazo 3.375gm/50ml 50 ML IV SCH ×4 (01:48→19:46)
[2018-06-28 02:31] LABS: BASOPHILS % (AUTO) 0.2 % (0-1); EOSINOPHILS % (AUTO) 0.3 % (0-6); HEMOGLOBIN 12.2 g/dl (14.0-17.9); LYMPHOCYTES # (AUTO) 1.4 X10'3 (1.1-4.8); LYMPHOCYTES % (AUTO) 11.2 % (21-51); MEAN CORPUSCULAR HEMOGLOBIN 26.8 PG (27.0-31.0); MEAN CORPUSCULAR VOLUME 83.7 FL (78-98); MEAN PLATELET VOLUME 7.9 FL (7.4-10.4); MONOCYTES # (AUTO) 0.8 X10'3 (0-0.9); MONOCYTES % (AUTO) 6.5 % (2-12); NEUTROPHILS % (AUTO) 81.8 % (42-75); PLATELET COUNT 317 X10'3 (140-440); RED BLOOD COUNT 4.54 X10'6 (4.70-6.10); RED CELL DISTRIBUTION WIDTH 16.8 % (11.5-14.5); WHITE BLOOD COUNT 12.3 X10'3 (4.5-11.0)
[2018-06-28 02:36] LABS: ALANINE AMINOTRANSFERASE 18 U/L (12-78); ALBUMIN 2.6 G/DL (3.4-5.0); ALBUMIN/GLOBULIN RATIO 0.6 (1.1-1.5); ALKALINE PHOSPHATASE 108 IU/L (46-116); ANION GAP 10 (8-16); ASPARTATE AMINO TRANSFERASE 16 U/L (10-37); BILIRUBIN,TOTAL 1.2 MG/DL (0.1-1.0); BLOOD UREA NITROGEN 13 MG/DL (7-18); BUN/CREATININE RATIO 15.1 (5.4-32.0); CALCIUM 8.4 MG/DL (8.5-10.1); CHLORIDE 102 MMOL/L (99-107); CREATININE 0.86 MG/DL (0.60-1.10); GLUCOSE 111 MG/DL (70-104); MAGNESIUM 1.7 MG/DL (1.5-2.4); PHOSPHORUS 1.4 MG/DL (2.3-4.5); SODIUM 139 MMOL/L (135-145); TOTAL CARBON DIOXIDE 26.7 MMOL/L (24-32); eGFR > 90 ML/MIN
[2018-06-28 02:48] LABS: POTASSIUM 2.7 MMOL/L (3.5-5.1)
[2018-06-28] MEDS: ipratropium/albuterol 3ml nebule NEB SCH ×4 (02:52→20:25)
[2018-06-28] MEDS: potassium Cl 40MEQ/250ML bag 250 ML IV PRN ×2 (03:23→06:57)
[2018-06-28] MEDS: normal saline 1000ml 1,000 ML IV SCH ×3 (05:06→18:26)
[2018-06-28] MEDS: niCARDipine-NS 40mg/200ml IVPB 200 ML IV SCH ×6 (05:07→23:39)
--- NOTE | 2018-06-28 06:39 | NUR ---
Patient in room CICU 2006. I have received report from Sharon and had the opportunity to ask questions and assume patient care.
[2018-06-28] MEDS: K, MAG and/or Phos replacement - Verify level? MC SCH (08:39)
[2018-06-28] MEDS: pantoprazole 40 MG vial IV SCH (08:48)
[2018-06-28] MEDS: carVEDilol 12.5mg tablet PO SCH ×2 (08:49→19:40)
[2018-06-28] MEDS: nicotine 21mg patch - 24 hr TD SCH (08:49)
--- NOTE | 2018-06-28 10:32 | NUR ---
Dr Cullen rounds- Ok to ambulate patient. No need for phosphorus replacement
--- NOTE | 2018-06-28 10:55 | NUR ---
Dr Eugene rounds- OK for ambulation, change dressing to abdomen daily and PRN , OK for ice chips and popsicles, Ok for transfer from surgical standpoint
[2018-06-28] MEDS: diltiazem 30mg tablet PO SCH ×3 (13:05→19:40)
--- NOTE | 2018-06-28 14:17 | NUR ---
reassessment: Pt extubated s/p ex-lap lysis of adhesions w/ terminal ileum resection r/t ischemic and scarred bowel per MD note. Pt remains NPO w/ no stool or gas yet. Unsure if ileocecal valve remains post-op. Phos 1.4 w/o replacement per MD today; receiving K replacement for 2.7. Will monitor for diet advancement and additional protein needs post-op. Rec: 1. advance diet per MD to low-residue 2. monitor for ONS needs once PO 3. wt per rx Addendum: 06/28/18 at [address] Amended: Links added.
--- NOTE | 2018-06-28 17:16 | NUR ---
1630 T wave inverted, no c/0 CP, no other issues, discussed with TL, continue to monitor, K replaced today, will recheck.
--- NOTE | 2018-06-28 18:25 | NUR ---
Problems reprioritized. Patient report given, questions answered & plan of care reviewed with
--- NOTE | 2018-06-28 18:30 | NUR ---
Patient in room CICU 2006. I have received report from Colin STARKS and had the opportunity to ask questions and assume patient care.
[2018-06-28] MEDS: lactobacillus rhamnosus 10,000 MMU CELLS/CAPSULE PO SCH (19:40)
[2018-06-28] MEDS: potassium Cl 20 mEq SR tablet PO PRN ×2 (19:41→23:44)
[2018-06-29] VITALS (33 sets, daily range): BP systolic 108–156; BP diastolic 62–79
[2018-06-29] MEDS: HYDROmorphone/NS 1 mg/ml CADD 50 ML IV SCH ×12 (01:00→23:00)
[2018-06-29] MEDS: diltiazem 30mg tablet PO SCH ×2 (02:10→08:09)
[2018-06-29] MEDS: piperacillin/tazo 3.375gm/50ml 50 ML IV SCH ×4 (02:10→19:34)
[2018-06-29] MEDS: ipratropium/albuterol 3ml nebule NEB SCH ×2 (02:44→08:01)
[2018-06-29] MEDS: potassium Cl 20 mEq SR tablet PO PRN (04:08)
[2018-06-29] MEDS: niCARDipine-NS 40mg/200ml IVPB 200 ML IV SCH ×3 (04:08→16:58)
[2018-06-29 06:12] LABS: BASOPHILS % (AUTO) 0.3 % (0-1); EOSINOPHILS # (AUTO) 0.2 X10'3 (0-0.9); EOSINOPHILS % (AUTO) 1.5 % (0-6); HEMATOCRIT 37.8 % (42.0-52.0); HEMOGLOBIN 12.3 g/dl (14.0-17.9); LYMPHOCYTES # (AUTO) 1.8 X10'3 (1.1-4.8); LYMPHOCYTES % (AUTO) 16.2 % (21-51); MEAN CORPUSCULAR HEMOGLOBIN 27.4 PG (27.0-31.0); MEAN CORPUSCULAR HGB CONC 32.5 % (33.0-36.5); MEAN CORPUSCULAR VOLUME 84.2 FL (78-98); MEAN PLATELET VOLUME 7.7 FL (7.4-10.4); MONOCYTES # (AUTO) 0.6 X10'3 (0-0.9); MONOCYTES % (AUTO) 5.4 % (2-12); NEUTROPHILS # (AUTO) 8.5 X10'3 (1.8-7.7); NEUTROPHILS % (AUTO) 76.6 % (42-75); PLATELET COUNT 380 X10'3 (140-440); RED BLOOD COUNT 4.48 X10'6 (4.70-6.10); RED CELL DISTRIBUTION WIDTH 17.1 % (11.5-14.5); WHITE BLOOD COUNT 11.1 X10'3 (4.5-11.0)
--- NOTE | 2018-06-29 06:29 | NUR ---
Problems reprioritized. Patient report given, questions answered & plan of care reviewed with Salma STARKS.
--- NOTE | 2018-06-29 06:31 | NUR ---
Patient in room CICU 2006. I have received report from RAUDEL Coreas and had the opportunity to ask questions and assume patient care.
[2018-06-29 06:32] LABS: ALANINE AMINOTRANSFERASE 16 U/L (12-78); ALBUMIN 2.6 G/DL (3.4-5.0); ALBUMIN/GLOBULIN RATIO 0.6 (1.1-1.5); ALKALINE PHOSPHATASE 101 IU/L (46-116); ANION GAP 11 (8-16); ASPARTATE AMINO TRANSFERASE 16 U/L (10-37); BILIRUBIN,TOTAL 1.1 MG/DL (0.1-1.0); BLOOD UREA NITROGEN 13 MG/DL (7-18); BUN/CREATININE RATIO 15.3 (5.4-32.0); CALCIUM 8.4 MG/DL (8.5-10.1); CHLORIDE 102 MMOL/L (99-107); CREATININE 0.85 MG/DL (0.60-1.10); GLUCOSE 113 MG/DL (70-104); MAGNESIUM 1.7 MG/DL (1.5-2.4); PHOSPHORUS 1.8 MG/DL (2.3-4.5); POTASSIUM 3.4 MMOL/L (3.5-5.1); SODIUM 137 MMOL/L (135-145); TOTAL CARBON DIOXIDE 24.2 MMOL/L (24-32); eGFR > 90 ML/MIN
[2018-06-29] MEDS: pantoprazole 40 MG vial IV SCH (07:43)
[2018-06-29] MEDS: K, MAG and/or Phos replacement - Verify level? MC SCH (08:00)
[2018-06-29] MEDS: carVEDilol 12.5mg tablet PO SCH ×2 (08:09→19:34)
[2018-06-29] MEDS: lactobacillus rhamnosus 10,000 MMU CELLS/CAPSULE PO SCH ×2 (08:09→19:33)
[2018-06-29] MEDS: nicotine 21mg patch - 24 hr TD SCH (08:10)
[2018-06-29] MEDS ORDERED: potassium Cl oral solution 20 MEQ/15 ML PO PRN (08:32)
[2018-06-29] MEDS: potassium Cl oral solution 20 MEQ/15 ML PO PRN ×3 (08:37→19:56)
[2018-06-29] MEDS: normal saline 1000ml 1,000 ML IV SCH (10:32)
--- NOTE | 2018-06-29 10:35 | NUR ---
Cardene needs kept increasing, BP remained in 130s-140s, reassessed the CVL and noticed pillow case wet, took down dressing and flushed line, appears to flush but also clearly leaking. Since line lost integrity I took out his CVL and switched cardene and IVF w/dilaudid to peripheral 18G in left IJ. Compatibility checked.
--- NOTE | 2018-06-29 11:55 | NUR ---
Dr Cullen and critical care team at bedside and discussed the need for ambulation, advance to clear liquid, NG tube out, increase cardizem to 240mg daily and try to wean down cardene
[2018-06-29] MEDS: diltiazem CD 120mg capsule (once-daily) PO SCH (12:02)
--- NOTE | 2018-06-29 13:00 | NUR ---
Showed Dr Cullen the EKG and informed him troponin was negative he states no need for further interventions at this time. I also told him that the cardene drip has only been decreased to 5mcg from 7.5 and BP still in the 140s, but that I did give the cardizem 240mg dose earlier. He states may take a while for bigger dose to kick in and we should wait on going down on the cardene. No other changes in orders.
--- NOTE | 2018-06-29 14:00 | NUR ---
NG tube dc'd, pt tolerated well. Pt already has eaten tray of clear liquids and had BM today all prior to tube being taken out.
--- NOTE | 2018-06-29 15:15 | NUR ---
Dr Salazar at bedside, discussed with patient his status. I gave him update and answered MD's questions. He gave orders to advance as tolerated.
--- NOTE | 2018-06-29 16:30 | NUR ---
Dr Cullen at bedside asking if cardene drip still needed, I told him we are still at 5mcg, unable to titrate down because pt BP is still in 130s/140s but that I didn't want to go up on the drip. He states to stay at 5 and wean down tonight if possible.
--- NOTE | 2018-06-29 16:45 | NUR ---
Pt's midline dressing changed, very minimal drainage seen under dressing, bibiana clean dry and intact.
--- NOTE | 2018-06-29 18:21 | NUR ---
Problems reprioritized. Patient report given, questions answered & plan of care reviewed with RAUDEL Spence and RAUDEL Foley.
--- NOTE | 2018-06-29 18:31 | NUR ---
Patient in room CICU 2006. I have received report from JOHN STARKS and had the opportunity to ask questions and assume patient care.
--- NOTE | 2018-06-29 18:50 | NUR ---
Patient in room CICU 2006. I have received report from Salma STARKS and had the opportunity to ask questions and assume patient care.
[2018-06-30] VITALS (29 sets, daily range): BP systolic 94–152; BP diastolic 51–78
[2018-06-30] MEDS: HYDROmorphone/NS 1 mg/ml CADD 50 ML IV SCH ×12 (01:00→23:00)
[2018-06-30] MEDS: piperacillin/tazo 3.375gm/50ml 50 ML IV SCH ×4 (02:00→19:21)
[2018-06-30] MEDS: niCARDipine-NS 40mg/200ml IVPB 200 ML IV SCH ×4 (03:03→19:20)
--- NOTE | 2018-06-30 03:13 | NUR ---
Patient's SBP has risen into the 140s, so the cardene IV drip rate has been increased from 2.5 mg/hr to 5 mg/hr. Goal is SBP 110 to 130.
--- NOTE | 2018-06-30 05:18 | NUR ---
SBP decreased to 103. Goal is 110 to 130. Cardene IV drip decreased to 2.5 mg/hr.
[2018-06-30 05:36] LABS: BASOPHILS % (AUTO) 0.4 % (0-1); EOSINOPHILS # (AUTO) 0.2 X10'3 (0-0.9); HEMATOCRIT 41.7 % (42.0-52.0); HEMOGLOBIN 13.6 g/dl (14.0-17.9); LYMPHOCYTES # (AUTO) 2.3 X10'3 (1.1-4.8); LYMPHOCYTES % (AUTO) 21.5 % (21-51); MEAN CORPUSCULAR HEMOGLOBIN 27.4 PG (27.0-31.0); MEAN CORPUSCULAR HGB CONC 32.6 % (33.0-36.5); MEAN CORPUSCULAR VOLUME 83.8 FL (78-98); MEAN PLATELET VOLUME 7.8 FL (7.4-10.4); MONOCYTES # (AUTO) 0.7 X10'3 (0-0.9); MONOCYTES % (AUTO) 6.5 % (2-12); NEUTROPHILS # (AUTO) 7.5 X10'3 (1.8-7.7); NEUTROPHILS % (AUTO) 69.6 % (42-75); PLATELET COUNT 418 X10'3 (140-440); RED BLOOD COUNT 4.98 X10'6 (4.70-6.10); RED CELL DISTRIBUTION WIDTH 16.7 % (11.5-14.5); WHITE BLOOD COUNT 10.8 X10'3 (4.5-11.0)
[2018-06-30 05:44] LABS: ALANINE AMINOTRANSFERASE 14 U/L (12-78); ALBUMIN 2.7 G/DL (3.4-5.0); ALBUMIN/GLOBULIN RATIO 0.6 (1.1-1.5); ALKALINE PHOSPHATASE 100 IU/L (46-116); ANION GAP 10 (8-16); ASPARTATE AMINO TRANSFERASE 12 U/L (10-37); BLOOD UREA NITROGEN 11 MG/DL (7-18); BUN/CREATININE RATIO 11.8 (5.4-32.0); CALCIUM 8.8 MG/DL (8.5-10.1); CHLORIDE 100 MMOL/L (99-107); CREATININE 0.93 MG/DL (0.60-1.10); GLUCOSE 117 MG/DL (70-104); MAGNESIUM 1.6 MG/DL (1.5-2.4); PHOSPHORUS 2.3 MG/DL (2.3-4.5); POTASSIUM 3.4 MMOL/L (3.5-5.1); SODIUM 136 MMOL/L (135-145); TOTAL CARBON DIOXIDE 26.3 MMOL/L (24-32); TOTAL PROTEIN 7.5 G/DL (6.4-8.2); eGFR 85 ML/MIN
--- NOTE | 2018-06-30 06:05 | NUR ---
ORIENTEE documentation: I have reviewed and agree with all interventions, assessments performed and documented by ELENITA STARKS.
--- NOTE | 2018-06-30 06:05 | NUR ---
ORIENTEE Medication Administration: For this medication-pass time frame, all medication were reviewed, dispensed, administered and documented per hospital policy by ELENITA STARKS.
--- NOTE | 2018-06-30 06:15 | NUR ---
Patient in room CICU 2005. I have received report from radiagraph operator RN and had the opportunity to ask questions and assume patient care.
--- NOTE | 2018-06-30 06:28 | NUR ---
Problems reprioritized. Patient report given, questions answered & plan of care reviewed with Chel STARKS. Patient is resting in bed, in no apparent distress. CADD pump attached, cardene IV running at 2.5 mg/hr, fluids.
[2018-06-30] MEDS: diltiazem CD 120mg capsule (once-daily) PO SCH (07:21)
[2018-06-30] MEDS: nicotine 21mg patch - 24 hr TD SCH (07:21)
[2018-06-30] MEDS: lactobacillus rhamnosus 10,000 MMU CELLS/CAPSULE PO SCH ×2 (07:21→20:00)
[2018-06-30] MEDS: carVEDilol 12.5mg tablet PO SCH ×2 (07:21→19:21)
[2018-06-30] MEDS: pantoprazole 40 MG vial IV SCH (07:21)
[2018-06-30] MEDS: potassium Cl oral solution 20 MEQ/15 ML PO PRN (07:21)
[2018-06-30] MEDS: K, MAG and/or Phos replacement - Verify level? MC SCH (07:22)
--- NOTE | 2018-06-30 07:35 | NUR ---
patient remains in the ICU and is on Cardene drip at 2.5 mg in order to keep BP in control, systolic goal is 110-130. Current BP is 120/66. Patient is calm and alert asking for breakfast tray. Potassium currently being replaced with oral replacement due to K of 3.4 on the am labs. Will continue to monitor.
[2018-06-30] MEDS: normal saline 1000ml 1,000 ML IV SCH (07:36)
--- NOTE | 2018-06-30 10:18 | NUR ---
patient sleeping, HR is 69 and BP is 124/63
--- NOTE | 2018-06-30 13:24 | NUR ---
patient up to the chair watching tv, VSS, able to ambulate independently. Will continue to monitor.
--- NOTE | 2018-06-30 16:24 | NUR ---
Problems reprioritized. Patient report given, questions answered & plan of care reviewed with Shimon STARKS.
--- NOTE | 2018-06-30 18:20 | NUR ---
Recieved report, NS @ 20ml/hr, Cardene @ 5mg/hr, CADD with Dilaudid 0.20mg on demand lock out 10 min. Patient sitting up in bed eating dinner, no needs at this time, will continue to monitor
[2018-07-01] VITALS (18 sets, daily range): BP systolic 106–155; BP diastolic 55–82
[2018-07-01] MEDS: HYDROmorphone/NS 1 mg/ml CADD 50 ML IV SCH ×5 (01:00→09:00)
[2018-07-01] MEDS: piperacillin/tazo 3.375gm/50ml 50 ML IV SCH ×2 (02:24→07:54)
[2018-07-01 05:00] LABS: ALANINE AMINOTRANSFERASE 10 U/L (12-78); ALBUMIN 2.6 G/DL (3.4-5.0); ALBUMIN/GLOBULIN RATIO 0.6 (1.1-1.5); ALKALINE PHOSPHATASE 94 IU/L (46-116); ANION GAP 11 (8-16); ASPARTATE AMINO TRANSFERASE 11 U/L (10-37); BILIRUBIN,TOTAL 0.8 MG/DL (0.1-1.0); BLOOD UREA NITROGEN 11 MG/DL (7-18); BUN/CREATININE RATIO 11.8 (5.4-32.0); CALCIUM 8.4 MG/DL (8.5-10.1); CHLORIDE 101 MMOL/L (99-107); CREATININE 0.93 MG/DL (0.60-1.10); GLUCOSE 115 MG/DL (70-104); MAGNESIUM 1.6 MG/DL (1.5-2.4); PHOSPHORUS 3.8 MG/DL (2.3-4.5); POTASSIUM 3.5 MMOL/L (3.5-5.1); SODIUM 135 MMOL/L (135-145); TOTAL CARBON DIOXIDE 23.1 MMOL/L (24-32); TOTAL PROTEIN 7.1 G/DL (6.4-8.2); eGFR 85 ML/MIN
[2018-07-01 05:24] LABS: BASOPHILS % (AUTO) 0.3 % (0-1); EOSINOPHILS # (AUTO) 0.3 X10'3 (0-0.9); EOSINOPHILS % (AUTO) 2.5 % (0-6); HEMATOCRIT 39.8 % (42.0-52.0); HEMOGLOBIN 12.8 g/dl (14.0-17.9); LYMPHOCYTES % (AUTO) 19.2 % (21-51); MEAN CORPUSCULAR HEMOGLOBIN 27.3 PG (27.0-31.0); MEAN CORPUSCULAR HGB CONC 32.2 % (33.0-36.5); MEAN CORPUSCULAR VOLUME 84.8 FL (78-98); MONOCYTES # (AUTO) 0.7 X10'3 (0-0.9); MONOCYTES % (AUTO) 7.1 % (2-12); NEUTROPHILS # (AUTO) 7.4 X10'3 (1.8-7.7); NEUTROPHILS % (AUTO) 70.9 % (42-75); PLATELET COUNT 398 X10'3 (140-440); RED BLOOD COUNT 4.69 X10'6 (4.70-6.10); RED CELL DISTRIBUTION WIDTH 16.2 % (11.5-14.5); WHITE BLOOD COUNT 10.4 X10'3 (4.5-11.0)
--- NOTE | 2018-07-01 06:28 | NUR ---
Problems reprioritized. Patient report given, questions answered & plan of care reviewed with Maverick STARKS.
[2018-07-01] MEDS: pantoprazole 40 MG vial IV SCH (07:53)
[2018-07-01] MEDS: lactobacillus rhamnosus 10,000 MMU CELLS/CAPSULE PO SCH ×2 (07:54→20:40)
[2018-07-01] MEDS: nicotine 21mg patch - 24 hr TD SCH (07:54)
[2018-07-01] MEDS: diltiazem CD 120mg capsule (once-daily) PO SCH (07:54)
[2018-07-01] MEDS: carVEDilol 12.5mg tablet PO SCH ×2 (07:54→20:38)
[2018-07-01] MEDS: K, MAG and/or Phos replacement - Verify level? MC SCH (08:00)
[2018-07-01] MEDS: nicotine 14mg patch - 24hr TD SCH (09:50)
[2018-07-01] MEDS: HYDROcodone/acetaminophen 10/325mg tab PO PRN ×3 (11:23→20:38)
--- NOTE | 2018-07-01 12:21 | NUR ---
Blood pressure 132/82 and systolic blood pressure trending in the 130s; Dr. Cullen notified and aware. No new orders. Will continue the plan to transfer patient to telemetry.
[2018-07-01] MEDS: gabapentin 100mg capsule PO SCH ×2 (13:11→20:40)
--- NOTE | 2018-07-01 13:19 | NUR ---
Patient report called to Daryn STARKS; all questions answered
--- NOTE | 2018-07-01 13:45 | NUR ---
Patient transferred to Telemetry room with all belongings including clothing and multiple rings.
--- NOTE | 2018-07-01 18:16 | NUR ---
Problems reprioritized. Patient report given, questions answered & plan of care reviewed with RAUDEL Harrison.
--- NOTE | 2018-07-01 19:00 | NUR ---
Patient in room PCU 3012. I have received report from JACOBY STARKS and had the opportunity to ask questions and assume patient care.
[2018-07-02] MEDS: HYDROcodone/acetaminophen 10/325mg tab PO PRN ×3 (02:41→12:43)
[2018-07-02 03:00] VITALS: BP 135/76
[2018-07-02 05:51] LABS: ALANINE AMINOTRANSFERASE 16 U/L (12-78); ALBUMIN 2.5 G/DL (3.4-5.0); ALBUMIN/GLOBULIN RATIO 0.6 (1.1-1.5); ALKALINE PHOSPHATASE 96 IU/L (46-116); ANION GAP 11 (8-16); ASPARTATE AMINO TRANSFERASE 14 U/L (10-37); BILIRUBIN,TOTAL 0.6 MG/DL (0.1-1.0); BLOOD UREA NITROGEN 14 MG/DL (7-18); BUN/CREATININE RATIO 15.9 (5.4-32.0); CALCIUM 7.9 MG/DL (8.5-10.1); CHLORIDE 102 MMOL/L (99-107); CREATININE 0.88 MG/DL (0.60-1.10); GLUCOSE 94 MG/DL (70-104); MAGNESIUM 1.7 MG/DL (1.5-2.4); PHOSPHORUS 3.4 MG/DL (2.3-4.5); POTASSIUM 3.5 MMOL/L (3.5-5.1); SODIUM 138 MMOL/L (135-145); TOTAL CARBON DIOXIDE 24.6 MMOL/L (24-32); TOTAL PROTEIN 6.6 G/DL (6.4-8.2); eGFR > 90 ML/MIN
[2018-07-02 06:00] VITALS: BP 133/71
[2018-07-02 06:05] LABS: BASOPHILS % (AUTO) 0.3 % (0-1); EOSINOPHILS # (AUTO) 0.3 X10'3 (0-0.9); EOSINOPHILS % (AUTO) 2.7 % (0-6); HEMATOCRIT 36.7 % (42.0-52.0); HEMOGLOBIN 12.4 g/dl (14.0-17.9); LYMPHOCYTES # (AUTO) 2.3 X10'3 (1.1-4.8); LYMPHOCYTES % (AUTO) 19.6 % (21-51); MEAN CORPUSCULAR HEMOGLOBIN 28.6 PG (27.0-31.0); MEAN CORPUSCULAR HGB CONC 33.9 % (33.0-36.5); MEAN CORPUSCULAR VOLUME 84.4 FL (78-98); MEAN PLATELET VOLUME 7.7 FL (7.4-10.4); MONOCYTES # (AUTO) 0.7 X10'3 (0-0.9); MONOCYTES % (AUTO) 6.2 % (2-12); NEUTROPHILS # (AUTO) 8.3 X10'3 (1.8-7.7); NEUTROPHILS % (AUTO) 71.2 % (42-75); PLATELET COUNT 390 X10'3 (140-440); RED BLOOD COUNT 4.35 X10'6 (4.70-6.10); RED CELL DISTRIBUTION WIDTH 16.4 % (11.5-14.5); WHITE BLOOD COUNT 11.6 X10'3 (4.5-11.0)
--- NOTE | 2018-07-02 06:06 | NUR ---
Patient in room PCU 3012. I have received report from RAUDEL Harrison and had the opportunity to ask questions and assume patient care.
--- NOTE | 2018-07-02 06:06 | NUR ---
Problems reprioritized. Patient report given, questions answered & plan of care reviewed with HUSSEIN STARKS.
[2018-07-02] MEDS: K, MAG and/or Phos replacement - Verify level? MC SCH (08:00)
[2018-07-02] MEDS: lactobacillus rhamnosus 10,000 MMU CELLS/CAPSULE PO SCH (08:25)
[2018-07-02] MEDS: diltiazem CD 120mg capsule (once-daily) PO SCH (08:25)
[2018-07-02] MEDS: gabapentin 100mg capsule PO SCH ×2 (08:25→12:42)
[2018-07-02] MEDS: carVEDilol 12.5mg tablet PO SCH (08:25)
[2018-07-02] MEDS: nicotine 14mg patch - 24hr TD SCH (08:26)
--- NOTE | 2018-07-02 09:34 | NUR ---
Reassessment: Per MD notes pt's bowels are working, LBM 07/01. Pt tolerated liquid diet per MD notes, diet has been advanced from full liquid to regular 07/01 with documented PO intake 50-75%. Will continue to follow. Rec: 1. Continue with regular diet 2. monitor for ONS needs 3. wt per rx Addendum: 07/02/18 at [address] Amended: Links added.
[2018-07-02] MEDS ORDERED: diltiazem CD 180mg cap (once-daily) PO SCH (09:57)
[2018-07-02 11:00] VITALS: BP 142/85
[2018-07-02 15:00] VITALS: BP 145/86
[2018-07-02] MEDS ORDERED: CARV-50 PO (15:40)
[2018-07-02] MEDS ORDERED: DILT180C66 PO (15:40)
--- NOTE | 2018-07-02 16:10 | NUR ---
Discharged. IV and tele DC'd. Educated on meds and take BP and pulse and told hold if BP is below 100 or pulse is below 60. Educated on post hernia repair care and to see primary provider as soon as he can get especially for the bibiana. Educated to see Dr Morales for consult about future procedure. Family was also educated on these factors. Stable per MD upon DC.
== END 2018-07-02 17:32 | disposition home or self-care (01) | DRG 230 ==
LOC: ER 17:20 → CICU 2S 06-26 02:32 → PCU 3S 07-01 14:11
PROVIDERS: ADMIT Internal Medicine Critical Care Medicine; ATTEND Internal Medicine Critical Care Medicine
PROC: B32T1ZZ Computerized Tomography (CT Scan) of Left Pulmonary Artery using Low Osmolar Contrast (ICD-10-PCS; principal; 2018-06-25)
PROC: B3201ZZ Computerized Tomography (CT Scan) of Thoracic Aorta using Low Osmolar Contrast (ICD-10-PCS; 2018-06-25)
PROC: B32S1ZZ Computerized Tomography (CT Scan) of Right Pulmonary Artery using Low Osmolar Contrast (ICD-10-PCS; 2018-06-25)
PROC: 0BH17EZ Insertion of Endotracheal Airway into Trachea, Via Natural or Artificial Opening (ICD-10-PCS; 2018-06-25)
PROC: 02HV33Z Insertion of Infusion Device into Superior Vena Cava, Percutaneous Approach (ICD-10-PCS; 2018-06-25)
PROC: B548ZZA Ultrasonography of Superior Vena Cava, Guidance (ICD-10-PCS; 2018-06-25)
PROC: 0DBB0ZZ Excision of Ileum, Open Approach (ICD-10-PCS; 2018-06-26)
PROC: 0DN80ZZ Release Small Intestine, Open Approach (ICD-10-PCS; 2018-06-26)
DX: K40.30 Unilateral inguinal hernia, with obstruction, without gangrene, not specified as recurrent (principal); I71.01 Dissection of thoracic aorta; I71.02 Dissection of abdominal aorta; J96.00 Acute respiratory failure, unspecified whether with hypoxia or hypercapnia; K55.9 Vascular disorder of intestine, unspecified; F11.90 Opioid use, unspecified, uncomplicated; G89.29 Other chronic pain; K66.0 Peritoneal adhesions (postprocedural) (postinfection); B19.20 Unspecified viral hepatitis C without hepatic coma; F12.90 Cannabis use, unspecified, uncomplicated; F15.90 Other stimulant use, unspecified, uncomplicated; F17.210 Nicotine dependence, cigarettes, uncomplicated; I10 Essential (primary) hypertension; Z56.0 Unemployment, unspecified; Z79.899 Other long term (current) drug therapy
CPT/HCPCS: 31500; 36415; 36556; 36600; 71045; 71275; 74174; 74176; 80048; 80053; 81001; 81003; 82803; 82948; 83605; 83690; 83735; 84100; 84132; 84484; 85018; 85025; 85610; 86885; 86900; 86901; 87070; 92616; 93005; 94002; 94003; 94640; 94760; 96365; 96366; 96368; 96375; 96376; 99291; A6258; A6449; A7000; C9113; G0378; J0360; J1170; J1580; J2060; J2250; J2370; J2543; J3010; J3480; J3490; J7030; J7120; Q9967

== ENCOUNTER 2018-07-10 21:03 | Emergency (ER) | payer MEDICAID ==
[~2018-07-10] VITALS: Ht 177.8 cm; Wt 84.0 kg
[~2018-07-10 21:03] MED LIST changes: +CARV-50 PO; +DILT180C66 PO; -NO HOME MEDS; -etomidate 2mg/ml inj. ONE; -rocuronium 10mg/ml inj IV ONE
[2018-07-10 22:00] LABS: BASOPHILS % (AUTO) 0.3 % (0-1); EOSINOPHILS # (AUTO) 0.2 X10'3 (0-0.9); EOSINOPHILS % (AUTO) 1.8 % (0-6); HEMOGLOBIN 13.9 g/dl (14.0-17.9); LYMPHOCYTES # (AUTO) 1.7 X10'3 (1.1-4.8); LYMPHOCYTES % (AUTO) 16.2 % (21-51); MEAN CORPUSCULAR HEMOGLOBIN 27.7 PG (27.0-31.0); MEAN CORPUSCULAR VOLUME 83.8 FL (78-98); MEAN PLATELET VOLUME 7.7 FL (7.4-10.4); MONOCYTES # (AUTO) 0.5 X10'3 (0-0.9); MONOCYTES % (AUTO) 4.4 % (2-12); NEUTROPHILS % (AUTO) 77.3 % (42-75); PLATELET COUNT 400 X10'3 (140-440); RED BLOOD COUNT 5.01 X10'6 (4.70-6.10); RED CELL DISTRIBUTION WIDTH 17.6 % (11.5-14.5); WHITE BLOOD COUNT 10.4 X10'3 (4.5-11.0)
[2018-07-10 22:07] LABS: PARTIAL THROMBOPLASTIN TIME 29 SECONDS (22-32); PROTHROMBIN TIME 10.5 SECONDS (9.0-12.0)
--- NOTE | 2018-07-10 22:08 | NUR ---
Upon entering the room, patient in bed, eyes closed, resp even and unlabored, appearing to sleep comfortably without any obvious complications, discomfort, or other issues. Patient awoken to attempt assessment and gather history, patient is not forth coming with history, or showing effort in discussing his s/sx or participating in assessment. Patient fell back asleep several times during assessment.
[2018-07-10 22:09] LABS: ALANINE AMINOTRANSFERASE 22 U/L (12-78); ALBUMIN 3.2 G/DL (3.4-5.0); ALBUMIN/GLOBULIN RATIO 0.7 (1.1-1.5); ALKALINE PHOSPHATASE 161 IU/L (46-116); ANION GAP 9 (8-16); ASPARTATE AMINO TRANSFERASE 19 U/L (10-37); BILIRUBIN,TOTAL 0.7 MG/DL (0.1-1.0); BLOOD UREA NITROGEN 18 MG/DL (7-18); CALCIUM 8.9 MG/DL (8.5-10.1); CHLORIDE 103 MMOL/L (99-107); CREATININE 0.75 MG/DL (0.60-1.10); GLUCOSE 126 MG/DL (70-104); POTASSIUM 3.2 MMOL/L (3.5-5.1); SODIUM 143 MMOL/L (135-145); eGFR > 90 ML/MIN
--- NOTE | 2018-07-10 22:19 | NUR ---
pulling off vital sign equipment and cardiac sonographer
[2018-07-10] MEDS ORDERED: ondansetron/PF 4mg/2ml inj IV ONE (22:35)
[2018-07-10] MEDS ORDERED: iohexol 350MG/ML 100ml bottle IV ONE (22:36)
[2018-07-10] MEDS: normal saline 1000ml 1,000 ML IV ONE ×2 (23:12→23:28)
--- NOTE | 2018-07-10 23:26 | NUR ---
Adonis rey in [facility] - 07/10/18 at 2326 by NRANSHUI PT PLACED ON HOSPITAL BED BY DRE THOMAS.
[2018-07-11 00:16] LABS: URINE AMPHETAMINE SCREEN POSITIVE (Neg); URINE BARBITUATE SCREEN NEGATIVE (Neg); URINE BENZODIAZEPINES SCREEN NEGATIVE (Neg); URINE CANNABINOID SCREEN POSITIVE (Neg); URINE COCAINE SCREEN NEGATIVE (Neg); URINE METHADONE SCREEN NEGATIVE (Neg); URINE OPIATE SCREEN POSITIVE (Neg); URINE PHENCYCLIDINE SCREEN NEGATIVE (Neg)
[2018-07-11 00:20] LABS: CLARITY,URINE CLEAR (Clear); COLOR,URINE YELLOW (Yellow); GLUCOSE, URINE NEGATIVE (Neg); KETONES,URINE NEGATIVE (Neg); LEUKOCYTE ESTERASE ,URINE NEGATIVE (Neg); NITRITES, URINE NEGATIVE (Neg); OCCULT BLOOD,URINE NEGATIVE (Neg); PROTEIN,URINE 30 mg/dl (Neg); UROBILINOGEN,URINE 0.2 E.U/dL (0.2-1.0)
[2018-07-11 00:21] LABS: UA COLLECTION TYPE CLN CATCH MIDSTREAM
[2018-07-11 00:39] LABS: AMORPHOUS PHOSPHATES 2+; BACTERIA,URINE NONE SEEN /HPF (Neg); FINE GRANULAR CAST 0-3 /LPF (NEGATIVE); MUCUS STRANDS FEW /LPF (Neg); RBC,URINE 0-2 /HPF (0-2); SQUAMOUS EPITHELIAL CELL,UR FEW /LPF (FEW); WBC,URINE 0-4 /HPF (0-4)
[2018-07-11 01:47] VITALS: BP 161/134
[2018-07-11] MEDS ORDERED: METO-292 PO (02:04)
[2018-07-11] MEDS ORDERED: metoclopramide 5 mg/ml inj IV ONE (02:05)
[2018-07-11] MEDS ORDERED: fentaNYL/PF 50MCG/1 ML 2ML syringe IV ONE (02:05)
[2018-07-11] MEDS ORDERED: dicyclomine 10 MG capsule PO ONE (02:05)
== END 2018-07-11 03:02 | disposition home or self-care (01) ==
LOC: ER 21:04
DX: K91.89 Other postprocedural complications and disorders of digestive system (principal); K56.7 Ileus, unspecified; I71.01 Dissection of thoracic aorta; G89.29 Other chronic pain; F12.90 Cannabis use, unspecified, uncomplicated; F15.90 Other stimulant use, unspecified, uncomplicated; F11.90 Opioid use, unspecified, uncomplicated; Z56.0 Unemployment, unspecified
CPT/HCPCS: 36415; 71045; 71275; 74174; 80053; 80305; 81001; 84484; 85025; 85610; 85730; 93005; 96374; 96375; 99284; J2405; J2765; J3010; Q9967; 81003; J7030

== ENCOUNTER 2018-12-05 12:28 | Emergency (ER) | payer MEDICAID ==
[~2018-12-05] VITALS: Ht 177.8 cm; Wt 79.0 kg
[~2018-12-05 12:28] MED LIST changes: -CARV-50 PO; +CARV12.545 PO; +DILT180C53 PO; -DILT180C66 PO; -GABA100C PO; -HYDR-3972 PO; +HYDR-4353 PO; -NICO-631 TD
[2018-12-05 12:46] VITALS: BP 142/91
[2018-12-05] MEDS ORDERED: normal saline 1000ML IV soln IVB ONE (13:30)
[2018-12-05] MEDS ORDERED: ondansetron/PF 4mg/2ml inj IV ONE (13:30)
[2018-12-05] MEDS ORDERED: morphine 4 MG/ML inj SYRINge IV PRN (13:30)
[2018-12-05 14:14] LABS: CLARITY,URINE CLEAR (Clear); COLOR,URINE YELLOW (Yellow); GLUCOSE, URINE NEGATIVE (Neg); KETONES,URINE NEGATIVE (Neg); LEUKOCYTE ESTERASE ,URINE NEGATIVE (Neg); NITRITES, URINE NEGATIVE (Neg); OCCULT BLOOD,URINE NEGATIVE (Neg); PROTEIN,URINE 30 mg/dl (Neg); UROBILINOGEN,URINE 0.2 E.U/dL (0.2-1.0)
[2018-12-05 14:16] LABS: ALANINE AMINOTRANSFERASE 26 U/L (12-78); ALBUMIN 3.1 G/DL (3.4-5.0); ALBUMIN/GLOBULIN RATIO 0.7 (1.1-1.5); ALKALINE PHOSPHATASE 99 IU/L (46-116); ANION GAP 7 (8-16); ASPARTATE AMINO TRANSFERASE 24 U/L (10-37); BILIRUBIN,TOTAL 0.6 MG/DL (0.1-1.0); BLOOD UREA NITROGEN 19 MG/DL (7-18); BUN/CREATININE RATIO 13.8 (5.4-32.0); CALCIUM 8.9 MG/DL (8.5-10.1); CHLORIDE 106 MMOL/L (99-107); CREATININE 1.38 MG/DL (0.60-1.10); GLUCOSE 96 MG/DL (70-104); LIPASE 289 U/L (73-393); POTASSIUM 3.2 MMOL/L (3.5-5.1); SODIUM 141 MMOL/L (135-145); TOTAL CARBON DIOXIDE 27.7 MMOL/L (24-32); TOTAL PROTEIN 7.7 G/DL (6.4-8.2); eGFR 54 ML/MIN
[2018-12-05 14:25] LABS: BASOPHILS # (AUTO) 0.1 X10'3 (0-0.2); BASOPHILS % (AUTO) 0.8 % (0-1); EOSINOPHILS # (AUTO) 0.3 X10'3 (0-0.9); EOSINOPHILS % (AUTO) 4.3 % (0-6); HEMATOCRIT 36.7 % (42.0-52.0); HEMOGLOBIN 12.3 g/dl (14.0-17.9); LYMPHOCYTES # (AUTO) 2.3 X10'3 (1.1-4.8); LYMPHOCYTES % (AUTO) 29.2 % (21-51); MEAN CORPUSCULAR HEMOGLOBIN 27.8 PG (27.0-31.0); MEAN CORPUSCULAR HGB CONC 33.4 g/dL (33.0-36.5); MEAN CORPUSCULAR VOLUME 83.1 FL (78-98); MEAN PLATELET VOLUME 7.1 FL (7.4-10.4); MONOCYTES # (AUTO) 0.7 X10'3 (0-0.9); MONOCYTES % (AUTO) 9.3 % (2-12); NEUTROPHILS # (AUTO) 4.4 X10'3 (1.8-7.7); NEUTROPHILS % (AUTO) 56.4 % (42-75); PLATELET COUNT 435 X10'3 (140-440); RED BLOOD COUNT 4.42 X10'6 (4.70-6.10); RED CELL DISTRIBUTION WIDTH 16.8 % (11.5-14.5); WHITE BLOOD COUNT 7.8 X10'3 (4.5-11.0)
[2018-12-05 14:30] LABS: UA COLLECTION TYPE CLN CATCH MIDSTREAM
[2018-12-05] MEDS ORDERED: iohexol 300mg/ml 100ml inj. ONE (14:30)
[2018-12-05 14:36] LABS: SQUAMOUS EPITHELIAL CELL,UR MODERATE /LPF (FEW)
[2018-12-05 14:38] LABS: FINE GRANULAR CAST 0-3 /LPF (NEGATIVE)
[2018-12-05 14:39] LABS: SPERM MODERATE /HPF (NEGATIVE)
[2018-12-05 14:40] LABS: RENAL CELLS, URINE FEW /HPF; TRANSITIONAL EPI CELLS,URINE FEW /HPF
[2018-12-05 14:41] LABS: BACTERIA,URINE 1+ /HPF (Neg)
--- NOTE | 2018-12-05 14:43 | NUR ---
ONE PIV ATTEMPTED GOOD BLOOD RETURN, PATIENT VIOLENTLY JERKED ARM BACK AND SAID "YOU HAve to put it in my neck""YOU GUYS ARE RUINING MY VEINS" PATIENT REFUSED TO HAVE AN IV PLACED UNLESS IT WAS IN HIS NECK I DISCUSSED THIS WITH DR BUTLER AND MD SAID NO TOT PLACE AN IV: HE CAN HAVE A NON CONTRAST CT SCAN PATIENT IS A DIFFICULT STICK DUE TO ONGOING HEROIN USE; PATIENT ADMITS TO USING THIS AM
== END 2018-12-05 16:02 | disposition home or self-care (01) ==
LOC: ER 12:29
DX: G89.18 Other acute postprocedural pain (principal); F12.90 Cannabis use, unspecified, uncomplicated; F15.90 Other stimulant use, unspecified, uncomplicated; F11.90 Opioid use, unspecified, uncomplicated; Z98.890 Other specified postprocedural states; Z59.0 Homelessness; Z56.0 Unemployment, unspecified; Z79.899 Other long term (current) drug therapy
CPT/HCPCS: 36415; 74176; 80053; 81001; 83690; 85025; 87088; 99284; Q9967

== ENCOUNTER 2019-08-15 06:44 | Inpatient (IN) | payer MEDICAID ==
[~2019-08-15] VITALS: Ht 177.8 cm; Wt 99.5 kg
[~2019-08-15 06:44] MED LIST changes: -HYDR-4353 PO
[2019-08-15 07:33] LABS: CLARITY,URINE CLEAR (Clear); COLOR,URINE STRAW (Yellow); GLUCOSE, URINE NEGATIVE (Neg); KETONES,URINE NEGATIVE (Neg); LEUKOCYTE ESTERASE ,URINE NEGATIVE (Neg); NITRITES, URINE NEGATIVE (Neg); OCCULT BLOOD,URINE TRACE-INTACT (Neg); PROTEIN,URINE NEGATIVE (Neg); UROBILINOGEN,URINE 0.2 E.U/dL (0.2-1.0)
[2019-08-15 07:34] LABS: UA COLLECTION TYPE CLN CATCH MIDSTREAM
[2019-08-15 07:38] LABS: BACTERIA,URINE NONE SEEN /HPF (Neg); MUCUS STRANDS NONE SEEN /LPF (Neg); RBC,URINE 0-2 /HPF (0-2); SQUAMOUS EPITHELIAL CELL,UR FEW /LPF (FEW); WBC,URINE NONE SEEN /HPF (0-4)
[2019-08-15] MEDS: cloNIDine 0.1 mg tablet PO SCH ×3 (08:52→20:49)
[2019-08-15 09:20] LABS: BASOPHILS % (AUTO) 0.5 % (0-1); EOSINOPHILS # (AUTO) 0.2 X10'3 (0-0.9); EOSINOPHILS % (AUTO) 2.7 % (0-6); HEMATOCRIT 38.9 % (42.0-52.0); LYMPHOCYTES # (AUTO) 2.2 X10'3 (1.1-4.8); LYMPHOCYTES % (AUTO) 26.9 % (21-51); MEAN CORPUSCULAR HEMOGLOBIN 29.2 PG (27.0-31.0); MEAN CORPUSCULAR HGB CONC 33.4 g/dL (33.0-36.5); MEAN CORPUSCULAR VOLUME 87.6 FL (78-98); MEAN PLATELET VOLUME 7.4 FL (7.4-10.4); MONOCYTES # (AUTO) 0.6 X10'3 (0-0.9); NEUTROPHILS # (AUTO) 5.1 X10'3 (1.8-7.7); NEUTROPHILS % (AUTO) 62.9 % (42-75); PLATELET COUNT 293 X10'3 (140-440); RED BLOOD COUNT 4.44 X10'6 (4.70-6.10); RED CELL DISTRIBUTION WIDTH 15.8 % (11.5-14.5); WHITE BLOOD COUNT 8.1 X10'3 (4.5-11.0)
[2019-08-15 09:34] LABS: PARTIAL THROMBOPLASTIN TIME 29 SECONDS (22-32)
[2019-08-15 09:37] LABS: ALANINE AMINOTRANSFERASE 20 U/L (12-78); ALBUMIN 3.5 G/DL (3.4-5.0); ALBUMIN/GLOBULIN RATIO 0.9 (1.1-1.5); ALKALINE PHOSPHATASE 110 IU/L (46-116); ANION GAP 9 (8-16); ASPARTATE AMINO TRANSFERASE 19 U/L (10-37); BILIRUBIN,TOTAL 0.3 MG/DL (0.1-1.0); BLOOD UREA NITROGEN 15 MG/DL (7-18); BUN/CREATININE RATIO 15.2 (5.4-32.0); CALCIUM 8.6 MG/DL (8.5-10.1); CHLORIDE 105 MMOL/L (99-107); CREATININE 0.99 MG/DL (0.60-1.10); GLUCOSE 104 MG/DL (70-104); POTASSIUM 3.6 MMOL/L (3.5-5.1); SODIUM 143 MMOL/L (135-145); TOTAL CARBON DIOXIDE 28.6 MMOL/L (24-32); TOTAL PROTEIN 7.6 G/DL (6.4-8.2); eGFR 79 ML/MIN
[2019-08-15 09:43] LABS: MAGNESIUM 1.8 MG/DL (1.5-2.4)
[2019-08-15] MEDS ORDERED: iohexol 350MG/ML 100ml bottle IV ONE (09:55)
[2019-08-15] MEDS ORDERED: iohexol 350 MG/ML 50ML vial IV ONE (09:55)
[2019-08-15] MEDS ORDERED: aspirin 81mg tab.chew PO ONE (10:05)
[2019-08-15] MEDS ORDERED: nitroGLYCERIN 0.4mg SUBLingual tab SL PRN (10:05)
[2019-08-15] MEDS ORDERED: furosemide 10 MG/1 ML 10ml inj IV ONE (12:15)
[2019-08-15] MEDS ORDERED: FURO-150 PO (13:23)
[2019-08-15] MEDS ORDERED: DILT360T2 PO (13:23)
[2019-08-15] MEDS ORDERED: BUPR1FIL3 SL (13:23)
[2019-08-15] MEDS ORDERED: CARV25TA PO (13:23)
[2019-08-15] MEDS ORDERED: cloNIDine 0.1 mg tablet PO ONE (13:35)
[2019-08-15] MEDS ORDERED: normal saline 1000ml 1,000 ML IV SCH (15:32)
[2019-08-15] MEDS ORDERED: mag hydrox/Alum hydrox/simeth 30ml oral suspension PO PRN (15:35)
[2019-08-15] MEDS ORDERED: magnesium 2GM in 50ml NS 50 ML IV PRN (15:35)
[2019-08-15] MEDS ORDERED: magnesium Cl slow-release 64mg tablet PO PRN (15:35)
[2019-08-15] MEDS ORDERED: potassium CL 10mEq/100ml bag 100 ML IV PRN ×2 (15:35)
[2019-08-15] MEDS ORDERED: potassium Cl 20 mEq SR tablet PO PRN ×2 (15:35)
[2019-08-15] MEDS ORDERED: magnesium 4gm in 100ml NS 100 ML IV PRN (15:35)
[2019-08-15] MEDS ORDERED: diphenhydrAMINE 25mg capsule PO PRN (15:35)
[2019-08-15] MEDS ORDERED: ondansetron/PF 4mg/2ml inj IV PRN (15:35)
[2019-08-15] MEDS ORDERED: bisacodyl 10mg suppository rectal RC PRN (15:35)
[2019-08-15] MEDS ORDERED: acetaminophen 650mg rectal suppository RC PRN (15:35)
[2019-08-15] MEDS ORDERED: HYDROcodone/acetaminophen 5mg/325mg tablet PO PRN (15:35)
[2019-08-15] MEDS ORDERED: magnesium hydroxide 30ml (MOM) UD suspension PO PRN (15:35)
[2019-08-15] MEDS ORDERED: acetaminophen 325mg tablet PO PRN ×2 (15:35)
[2019-08-15] MEDS ORDERED: ipratropium/albuterol 3ml nebule NEB PRN (15:35)
[2019-08-15] MEDS ORDERED: morphine 2 MG/ML inj. syringe IV PRN ×2 (15:35)
[2019-08-15 16:15] LABS: HEMOGLOBIN A1C 5.5 % (4.5-6.2)
--- NOTE | 2019-08-15 18:58 | NUR ---
Patient in room ED 2. I have received report from Mis STARKS and awaiting arrival of patient to the PCU unit.
--- NOTE | 2019-08-15 19:20 | NUR ---
Patient arrived from the ER at this time. He is alert and oriented and able to make his needs known. He ambulated from the gurney to the bed without difficulty. Vitals are stable. He is on room air. He denies any pain. Call light in reach. All safety precautions in place. Will continue to monitor.
[2019-08-15 19:25] VITALS: BP 155/67
[2019-08-15] MEDS: K and/or MAG REPLACEMENT MC SCH (20:00)
[2019-08-15] MEDS: ipratropium/albuterol 3ml nebule NEB SCH ×2 (20:44→20:48)
[2019-08-15] MEDS: carVEDilol 12.5mg tablet PO SCH (20:48)
[2019-08-15] MEDS: furosemide 40mg/4ml inj IV SCH (20:49)
[2019-08-15 22:00] VITALS: BP 130/79
[2019-08-15] MEDS ORDERED: methylPREDNISolone sod succ 125mg/2ml vial IV ONE (23:25)
[2019-08-16] MEDS: levoFLOXACIN-Levaquin 750MG/D5 150 ML IV SCH ×2 (00:10→07:32)
[2019-08-16] MEDS: HYDROcodone/acetaminophen 10/325mg tab PO PRN ×3 (01:02→13:11)
[2019-08-16 01:45] LABS: CLARITY,URINE CLEAR (Clear); COLOR,URINE YELLOW (Yellow); GLUCOSE, URINE NEGATIVE (Neg); KETONES,URINE NEGATIVE (Neg); LEUKOCYTE ESTERASE ,URINE NEGATIVE (Neg); NITRITES, URINE NEGATIVE (Neg); OCCULT BLOOD,URINE SMALL (Neg); PROTEIN,URINE NEGATIVE (Neg); UROBILINOGEN,URINE 0.2 E.U/dL (0.2-1.0)
[2019-08-16 01:52] LABS: UA COLLECTION TYPE CLN CATCH MIDSTREAM
[2019-08-16 01:54] LABS: URINE AMPHETAMINE SCREEN NEGATIVE (Neg); URINE BARBITUATE SCREEN NEGATIVE (Neg); URINE BENZODIAZEPINES SCREEN NEGATIVE (Neg); URINE CANNABINOID SCREEN POSITIVE (Neg); URINE COCAINE SCREEN NEGATIVE (Neg); URINE METHADONE SCREEN NEGATIVE (Neg); URINE OPIATE SCREEN POSITIVE (Neg); URINE PHENCYCLIDINE SCREEN NEGATIVE (Neg)
[2019-08-16 02:00] VITALS: BP 129/81
[2019-08-16 02:06] LABS: BACTERIA,URINE NONE SEEN /HPF (Neg); MUCUS STRANDS NONE SEEN /LPF (Neg); RBC,URINE 0-2 /HPF (0-2); SQUAMOUS EPITHELIAL CELL,UR NONE SEEN /LPF (FEW); WBC,URINE 0-4 /HPF (0-4)
[2019-08-16] MEDS: ipratropium/albuterol 3ml nebule NEB SCH ×3 (02:28→14:53)
[2019-08-16 06:20] LABS: BASOPHILS % (AUTO) 0.2 % (0-1); EOSINOPHILS % (AUTO) 0.1 % (0-6); HEMATOCRIT 43.3 % (42.0-52.0); LYMPHOCYTES # (AUTO) 1.1 X10'3 (1.1-4.8); LYMPHOCYTES % (AUTO) 10.9 % (21-51); MEAN CORPUSCULAR HEMOGLOBIN 30.2 PG (27.0-31.0); MEAN CORPUSCULAR HGB CONC 34.7 g/dL (33.0-36.5); MEAN CORPUSCULAR VOLUME 87.1 FL (78-98); MEAN PLATELET VOLUME 7.6 FL (7.4-10.4); MONOCYTES # (AUTO) 0.1 X10'3 (0-0.9); MONOCYTES % (AUTO) 0.8 % (2-12); NEUTROPHILS # (AUTO) 8.8 X10'3 (1.8-7.7); PLATELET COUNT 304 X10'3 (140-440); RED BLOOD COUNT 4.98 X10'6 (4.70-6.10); RED CELL DISTRIBUTION WIDTH 15.9 % (11.5-14.5)
[2019-08-16 06:28] LABS: ALANINE AMINOTRANSFERASE 19 U/L (12-78); ALBUMIN 3.7 G/DL (3.4-5.0); ALBUMIN/GLOBULIN RATIO 0.8 (1.1-1.5); ALKALINE PHOSPHATASE 109 IU/L (46-116); ANION GAP 10 (8-16); ASPARTATE AMINO TRANSFERASE 20 U/L (10-37); BILIRUBIN,TOTAL 0.4 MG/DL (0.1-1.0); BLOOD UREA NITROGEN 23 MG/DL (7-18); BUN/CREATININE RATIO 17.6 (5.4-32.0); CALCIUM 8.9 MG/DL (8.5-10.1); CHLORIDE 102 MMOL/L (99-107); CHOL/HDL RATIO 3.6 (0.00-4.99); CHOLESTEROL 155 MG/DL (0-200); CREATININE 1.31 MG/DL (0.60-1.10); GLUCOSE 146 MG/DL (70-104); HDL CHOLESTEROL 43 MG/DL (35-60); LDL CHOLESTEROL 103 MG/DL (50-100); MAGNESIUM 1.7 MG/DL (1.5-2.4); POTASSIUM 3.5 MMOL/L (3.5-5.1); SODIUM 140 MMOL/L (135-145); TOTAL CARBON DIOXIDE 28.3 MMOL/L (24-32); TOTAL PROTEIN 8.3 G/DL (6.4-8.2); TRIGLYCERIDES 40 MG/DL (20-135); eGFR 57 ML/MIN
--- NOTE | 2019-08-16 06:28 | NUR ---
Problems reprioritized. Patient report given, questions answered & plan of care reviewed with Arsalan STARKS.
--- NOTE | 2019-08-16 06:45 | NUR ---
Patient in room PCU 3014. I have received report from Mimi STARKS and had the opportunity to ask questions and assume patient care.
[2019-08-16 07:00] VITALS: BP 158/80
[2019-08-16] MEDS: cloNIDine 0.1 mg tablet PO SCH ×2 (07:31→13:11)
[2019-08-16] MEDS: methylPREDNISolone sod succ/PF 40mg inj. IV SCH ×2 (07:32→13:11)
[2019-08-16] MEDS: furosemide 40mg/4ml inj IV SCH (07:32)
[2019-08-16] MEDS: carVEDilol 12.5mg tablet PO SCH (07:32)
[2019-08-16] MEDS: K and/or MAG REPLACEMENT MC SCH (08:00)
[2019-08-16] MEDS ORDERED: diltiazem CD 180mg cap (once-daily) PO SCH (08:00)
[2019-08-16] MEDS ORDERED: LEVO500T89 PO (09:11)
[2019-08-16] MEDS ORDERED: BUDE10.22 INH (09:11)
[2019-08-16] MEDS ORDERED: PRED10TA23 PO (09:11)
[2019-08-16] MEDS ORDERED: CLON0.1T2 PO (09:11)
[2019-08-16] MEDS ORDERED: ALBU8.5H8 IH (09:11)
[2019-08-16] MEDS ORDERED: NITR0.4T51 SL (09:11)
[2019-08-16 11:00] VITALS: BP 150/72
[2019-08-16 12:21] LABS: HIV ANTIBODY 1&2 RAPID NON-REACTIVE (Neg)
--- NOTE | 2019-08-16 16:23 | NUR ---
Patient stable for discharge per MD order. All discharge information and education reviewed with patient before signing necessary paperwork. IV's discontinued with catheter in tact, quality assurance monitor final removed and returned, all belongings packed up and sent with patient, new prescriptions e-sent to [facility] on [address]. Patient wheeled down to lobby and driven by significant other.
== END 2019-08-16 16:02 | disposition home or self-care (01) | DRG 140 ==
LOC: ER 06:45 → ED HOLD 15:32 → PCU 3S 19:20
PROVIDERS: ADMIT Family Medicine; ATTEND Family Medicine
PROC: B32T1ZZ Computerized Tomography (CT Scan) of Left Pulmonary Artery using Low Osmolar Contrast (ICD-10-PCS; principal; 2019-08-15)
PROC: B3201ZZ Computerized Tomography (CT Scan) of Thoracic Aorta using Low Osmolar Contrast (ICD-10-PCS; 2019-08-15)
PROC: B32S1ZZ Computerized Tomography (CT Scan) of Right Pulmonary Artery using Low Osmolar Contrast (ICD-10-PCS; 2019-08-15)
DX: J44.1 Chronic obstructive pulmonary disease with (acute) exacerbation (principal); I71.00 Dissection of unspecified site of aorta; J96.90 Respiratory failure, unspecified, unspecified whether with hypoxia or hypercapnia; F11.10 Opioid abuse, uncomplicated; I50.9 Heart failure, unspecified; I11.0 Hypertensive heart disease with heart failure; F17.210 Nicotine dependence, cigarettes, uncomplicated; F15.10 Other stimulant abuse, uncomplicated; B19.20 Unspecified viral hepatitis C without hepatic coma; F10.20 Alcohol dependence, uncomplicated; F12.90 Cannabis use, unspecified, uncomplicated; G89.4 Chronic pain syndrome; I16.1 Hypertensive emergency; R00.1 Bradycardia, unspecified; I71.9 Aortic aneurysm of unspecified site, without rupture; Z79.899 Other long term (current) drug therapy; Z91.19 Patient's noncompliance with other medical treatment and regimen; Z59.0 Homelessness
CPT/HCPCS: 36415; 71045; 71275; 74174; 74175; 80053; 80061; 80305; 81001; 83036; 83735; 83880; 84100; 84484; 85025; 85610; 85730; 86703; 87081; 87502; 87503; 93005; 93306; 94640; 94760; 96374; 99285; G0378; J1940; J1956; J2920; J2930; J7030; Q9967

== ENCOUNTER 2022-07-09 09:46 | Emergency (ER) | payer MEDICAID ==
[~2022-07-09] VITALS: Ht 177.8 cm; Wt 88.6 kg
[~2022-07-09 09:46] MED LIST changes: +ALBU8.5H17 IH; +BUDE10.22 INH; +BUPR1FIL3 SL; -CARV12.545 PO; +CARV25TA PO; +CLON0.1T2 PO; -DILT180C53 PO; +DILT360T2 PO; +FURO-150 PO; +NITR0.4T51 SL
[2022-07-09 10:31] VITALS: BP 177/100
[2022-07-09 11:14] LABS: BASOPHILS # (AUTO) 0.1 X10'3 (0-0.2); BASOPHILS % (AUTO) 0.7 % (0-1); EOSINOPHILS % (AUTO) 0.3 % (0-6); HEMATOCRIT 35.6 % (42.0-52.0); HEMOGLOBIN 11.6 g/dl (14.0-17.9); LYMPHOCYTES # (AUTO) 1.5 X10'3 (1.1-4.8); LYMPHOCYTES % (AUTO) 15.3 % (21-51); MEAN CORPUSCULAR HEMOGLOBIN 29.1 PG (27.0-31.0); MEAN CORPUSCULAR HGB CONC 32.6 g/dL (33.0-36.5); MEAN CORPUSCULAR VOLUME 89.3 FL (78-98); MEAN PLATELET VOLUME 7.7 FL (7.4-10.4); MONOCYTES # (AUTO) 0.8 X10'3 (0-0.9); MONOCYTES % (AUTO) 8.1 % (2-12); NEUTROPHILS # (AUTO) 7.2 X10'3 (1.8-7.7); NEUTROPHILS % (AUTO) 75.6 % (42-75); PLATELET COUNT 316 X10'3 (140-440); RED BLOOD COUNT 3.99 X10'6 (4.70-6.10); RED CELL DISTRIBUTION WIDTH 16.3 % (11.5-14.5); WHITE BLOOD COUNT 9.5 X10'3 (4.5-11.0)
[2022-07-09 11:29] LABS: CLARITY,URINE CLEAR (Clear); COLOR,URINE YELLOW (Yellow); GLUCOSE, URINE 100 mg/dl (Neg); KETONES,URINE TRACE mg/dl (Neg); LEUKOCYTE ESTERASE ,URINE NEGATIVE (Neg); NITRITES, URINE NEGATIVE (Neg); OCCULT BLOOD,URINE MODERATE (Neg); PROTEIN,URINE 100 mg/dl (Neg); UROBILINOGEN,URINE 0.2 E.U/dL (0.2-1.0)
[2022-07-09 11:31] LABS: ALBUMIN 2.3 G/DL (3.4-5.0); ANION GAP 18 (8-16); BILIRUBIN,TOTAL 0.5 MG/DL (0.1-1.0); BLOOD UREA NITROGEN 86 MG/DL (7-18); BUN/CREATININE RATIO 9.9 (5.4-32.0); CALCIUM 7.7 MG/DL (8.5-10.1); CHLORIDE 98 MMOL/L (99-107); CREATININE 8.68 MG/DL (0.60-1.10); GLUCOSE 79 MG/DL (70-104); POTASSIUM 3.1 MMOL/L (3.5-5.1); SODIUM 134 MMOL/L (135-145); TOTAL CARBON DIOXIDE 17.8 MMOL/L (24-32); TOTAL PROTEIN 7.1 G/DL (6.4-8.2); eGFR 6 ML/MIN
[2022-07-09 11:32] LABS: ALANINE AMINOTRANSFERASE 27 U/L (12-78); ALBUMIN/GLOBULIN RATIO 0.5 (1.1-1.5); ALKALINE PHOSPHATASE 207 IU/L (46-116); ASPARTATE AMINO TRANSFERASE 43 U/L (10-37); LIPASE 229 U/L (73-393)
[2022-07-09 11:44] LABS: UA COLLECTION TYPE CLN CATCH MIDSTREAM
[2022-07-09 11:47] LABS: BACTERIA,URINE 2+ /HPF (Neg)
[2022-07-09 11:49] LABS: MUCUS STRANDS FEW /LPF (Neg); SQUAMOUS EPITHELIAL CELL,UR FEW /LPF (FEW); TRANSITIONAL EPI CELLS,URINE FEW /HPF; WBC CLUMPS,URINE FEW /HPF (NEGATIVE)
== END 2022-07-09 16:56 | disposition left against medical advice (07) ==
LOC: ER 09:47
DX: R10.9 Unspecified abdominal pain (principal); Z53.21 Procedure and treatment not carried out due to patient leaving prior to being seen by health care provider
CPT/HCPCS: 36415; 80053; 81001; 83690; 85025; 87088

== ENCOUNTER 2022-07-19 09:15 | Emergency (ER) | payer MEDICAID ==
[~2022-07-19] VITALS: Ht 177.8 cm; Wt 86.4 kg
[2022-07-19 09:21] VITALS: BP 164/88
--- NOTE | 2022-07-19 09:45 | NUR ---
Pt unable to urinate at 0945.
[2022-07-19 10:27] LABS: BASOPHILS # (AUTO) 0.1 X10'3 (0-0.2); BASOPHILS % (AUTO) 0.4 % (0-1); EOSINOPHILS # (AUTO) 0.1 X10'3 (0-0.9); EOSINOPHILS % (AUTO) 0.3 % (0-6); HEMATOCRIT 37.4 % (42.0-52.0); HEMOGLOBIN 12.5 g/dl (14.0-17.9); LYMPHOCYTES # (AUTO) 1.8 X10'3 (1.1-4.8); LYMPHOCYTES % (AUTO) 10.5 % (21-51); MEAN CORPUSCULAR HEMOGLOBIN 29.2 PG (27.0-31.0); MEAN CORPUSCULAR HGB CONC 33.3 g/dL (33.0-36.5); MEAN CORPUSCULAR VOLUME 87.8 FL (78-98); MEAN PLATELET VOLUME 7.5 FL (7.4-10.4); MONOCYTES # (AUTO) 0.7 X10'3 (0-0.9); MONOCYTES % (AUTO) 4.1 % (2-12); NEUTROPHILS # (AUTO) 14.6 X10'3 (1.8-7.7); NEUTROPHILS % (AUTO) 84.7 % (42-75); PLATELET COUNT 314 X10'3 (140-440); RED BLOOD COUNT 4.26 X10'6 (4.70-6.10); RED CELL DISTRIBUTION WIDTH 16.6 % (11.5-14.5); WHITE BLOOD COUNT 17.3 X10'3 (4.5-11.0)
[2022-07-19 10:38] LABS: ALANINE AMINOTRANSFERASE 23 U/L (12-78); ALBUMIN 2.1 G/DL (3.4-5.0); ALBUMIN/GLOBULIN RATIO 0.4 (1.1-1.5); ALKALINE PHOSPHATASE 173 IU/L (46-116); ASPARTATE AMINO TRANSFERASE 26 U/L (10-37); BILIRUBIN,TOTAL 0.5 MG/DL (0.1-1.0); LIPASE 245 U/L (73-393); TOTAL CARBON DIOXIDE 15.3 MMOL/L (24-32); TOTAL PROTEIN 7.4 G/DL (6.4-8.2)
[2022-07-19 10:43] LABS: CALCIUM 6.5 MG/DL (8.5-10.1)
[2022-07-19 10:44] LABS: ANION GAP 23 (8-16); BLOOD UREA NITROGEN 129 MG/DL (7-18); BUN/CREATININE RATIO 10.1 (5.4-32.0); CHLORIDE 94 MMOL/L (99-107); CREATININE 12.75 MG/DL (0.60-1.10); GLUCOSE 85 MG/DL (70-104); POTASSIUM 3.6 MMOL/L (3.5-5.1); SODIUM 132 MMOL/L (135-145); eGFR 4 ML/MIN
[2022-07-19 13:02] LABS: CLARITY,URINE SLIGHTLY CLOUDY (Clear); COLOR,URINE YELLOW (Yellow); GLUCOSE, URINE 250 mg/dl (Neg); KETONES,URINE NEGATIVE (Neg); LEUKOCYTE ESTERASE ,URINE NEGATIVE (Neg); NITRITES, URINE NEGATIVE (Neg); OCCULT BLOOD,URINE MODERATE (Neg); PROTEIN,URINE >=300 mg/dl (Neg); UROBILINOGEN,URINE 0.2 E.U/dL (0.2-1.0)
[2022-07-19 13:03] LABS: UA COLLECTION TYPE CLN CATCH MIDSTREAM
[2022-07-19 13:25] LABS: MUCUS STRANDS FEW /LPF (Neg); SQUAMOUS EPITHELIAL CELL,UR FEW /LPF (FEW); TRANSITIONAL EPI CELLS,URINE MODERATE /HPF
[2022-07-19 13:26] LABS: RBC,URINE 0-2 /HPF (0-2); WBC,URINE 0-4 /HPF (0-4)
[2022-07-19 13:28] LABS: FINE GRANULAR CAST 0-3 /LPF (NEGATIVE); HYALINE CASTS 0-3 /LPF (NEGATIVE)
[2022-07-19 13:44] LABS: AMORPHOUS URATES 2+; BACTERIA,URINE FEW /HPF (Neg)
[2022-07-19] MEDS ORDERED: normal saline 1000ml 1,000 ML IV ONE (14:25)
[2022-07-19 14:53] LABS: ETHANOL < 0.010 GM/DL (0.0-0.010)
[2022-07-19 16:22] LABS: URINE AMPHETAMINE SCREEN POSITIVE (Neg); URINE BARBITUATE SCREEN NEGATIVE (Neg); URINE BENZODIAZEPINES SCREEN NEGATIVE (Neg); URINE CANNABINOID SCREEN POSITIVE (Neg); URINE COCAINE SCREEN NEGATIVE (Neg); URINE METHADONE SCREEN POSITIVE (Neg); URINE OPIATE SCREEN NEGATIVE (Neg); URINE PHENCYCLIDINE SCREEN NEGATIVE (Neg)
== END 2022-07-20 08:48 | disposition left against medical advice (07) ==
LOC: ER 09:15
DX: N17.9 Acute kidney failure, unspecified (principal); E86.0 Dehydration; R11.2 Nausea with vomiting, unspecified; E87.6 Hypokalemia; I11.0 Hypertensive heart disease with heart failure; I50.9 Heart failure, unspecified; G89.29 Other chronic pain; F12.90 Cannabis use, unspecified, uncomplicated; F15.90 Other stimulant use, unspecified, uncomplicated; F11.90 Opioid use, unspecified, uncomplicated; Z86.19 Personal history of other infectious and parasitic diseases; Z72.89 Other problems related to lifestyle; Z59.00 Homelessness unspecified; Z56.0 Unemployment, unspecified; Z98.890 Other specified postprocedural states; Z79.899 Other long term (current) drug therapy
CPT/HCPCS: 36415; 74176; 80053; 80305; 80320; 81001; 83690; 85025; 99284